=== PATIENT | female | born 1955 | race Caucasian/White ===

== ENCOUNTER 2020-04-01 08:46 | Outpatient (CLI) | payer MEDICARE, SELFPAY ==
[2020-04-01 09:04] LABS: Basophils Absolute Auto 0.04 K/mm3 (0.00-0.10); Basophils Percent Auto 0.7 % (0.0-1.0); Eosinophils Percent Auto 1.9 % (1.0-6.0); Hematocrit 41.3 % (35.0-42.0); Hemoglobin 13.6 g/dL (11.7-13.8); Immature Granulocyte Absolute 0.02 K/mm3 (0.00-0.00); Immature Granulocyte Percent A 0.4 % (0.0-0.0); Lymphocytes Absolute Auto 1.72 K/mm3 (1.10-4.50); Lymphocytes Percent Auto 32.1 % (18.0-42.0); Mean Corpuscular HGB Conc 32.9 g/dL (32.0-36.0); Mean Corpuscular Hemoglobin 29.9 pg (27.0-31.0); Mean Corpuscular Volume 90.8 fL (78.0-102.0); Mean Platelet Volume 8.6 fl (9.2-11.8); Monocytes Absolute Auto 0.29 K/mm3 (0.10-0.90); Monocytes Percent Auto 5.4 % (2.0-11.0); Neutrophils Absolute Auto 3.2 K/mm3 (1.7-7.2); Neutrophils Percent Auto 59.5 % (50.0-70.0); Platelet Count Result 246 K/mm3 (150-420); Red Blood Count 4.55 M/mm3 (4.20-5.40); Red Cell Distribution Width 12.9 % (11.6-14.4); White Blood Count 5.4 K/mm3 (4.8-10.8)
[2020-04-01 09:34] LABS: Alanine Aminotransferase 30 U/L (14-59); Albumin Level 3.9 g/dL (3.4-5.0); Alkaline Phosphatase 82 U/L (46-116); Amylase 39 U/L (25-115); Anion Gap 11.1 mmol/L (7-16); Aspartate Amino Transferase 19 U/L (15-37); Bilirubin,Total 0.5 mg/dL (0.00-1.00); Blood Urea Nitrogen 13 mg/dL (7-18); Calcium 9.5 mg/dL (8.5-10.1); Carbon Dioxide 31 mmol/L (21-32); Chloride 103 mmol/L (98-108); Estimated Glomerular Filt Rate 48; Glucose 185 mg/dL (70-99); Lipase 84 U/L (73-393); Osmolality Calculated 297 mOsm/kg (285-295); Potassium 4.1 mmol/L (3.5-5.1); Sodium 141 mmol/L (136-145); Total Protein 8.1 g/dL (6.4-8.2)
[2020-04-01 09:38] LABS: Add Urine Microscopic? YES; Appearance Urine Clear (Clear); Bilirubin Urine Negative (Negative); Blood Urine Negative (Negative); Color Urine Yellow (Yellow); Glucose Urine UA Negative (Negative); Ketones Urine Negative (Negative); Leukocyte Esterase Ur 1+ (Negative); Nitrate Urine Negative (Negative); Protein Urine Negative (Negative); Urobilinogen Urine 0.2 mg/dL (0.2-1.0)
[2020-04-01 09:44] LABS: RBC Urine 0-2 /hpf (0-2); WBC Urine 0-3 /hpf (0-3)
[2020-04-01 09:45] LABS: Bacteria Urine 2+ /hpf; Squamous Epithelial Cell Urine Moderate /hpf (Few)
== END 2020-04-01 08:47 | disposition home or self-care (01) ==
LOC: CHSLAB 08:53
PROVIDERS: PCP Family Medicine; Visit Provider Family Medicine
DX: R10.811 Right upper quadrant abdominal tenderness (principal); N39.0 Urinary tract infection, site not specified
CPT/HCPCS: 36415; 80053; 81001; 82150; 83690; 85025; 87086; 87088

== ENCOUNTER 2020-04-06 08:07 | Outpatient (CLI) | payer MEDICARE, SELFPAY ==
--- NOTE | ~2020-04-06 | US_ITS ---
EXAMINATION: US right upper quadrant DATE: 04/06/2020 09:04 INDICATION: Right upper quadrant pain TECHNIQUE: Multiple grayscale and Doppler ultrasound images of the abdomen were obtained. COMPARISON: None available FINDINGS: The head and and body of the pancreas are normal. The pancreatic tail is obscured by bowel gas. The liver is normal with normal echogenicity and echotexture. No surface nodularity. Normal hepa topetal flow in the main portal vein. The gallbladder is normal with no abnormal wall thickening, per icholecystic fluid or stones. The normal common bile duct measures 3 mm. No abdominal wall mass is id entified. IMPRESSION: 1. Normal sonographic study of the gallbladder. 2. No abdominal wall mass identified. Reviewed, dictated and finalized at location A.
== END 2020-04-06 08:08 | disposition home or self-care (01) ==
PROVIDERS: PCP Family Medicine; Visit Provider Family Medicine
DX: R10.811 Right upper quadrant abdominal tenderness (principal)
CPT/HCPCS: 76705

== ENCOUNTER 2020-06-21 07:41 | Outpatient (CLI) | payer MEDICARE, SELFPAY ==
[2020-06-21 07:59] LABS: Basophils Absolute Auto 0.03 K/mm3 (0.00-0.10); Basophils Percent Auto 0.5 % (0.0-1.0); Eosinophils Absolute Auto 0.14 K/mm3 (0.02-0.50); Eosinophils Percent Auto 2.2 % (1.0-6.0); Hematocrit 41.2 % (35.0-42.0); Hemoglobin 13.4 g/dL (11.7-13.8); Immature Granulocyte Absolute 0.03 K/mm3 (0.00-0.00); Immature Granulocyte Percent A 0.5 % (0.0-0.0); Lymphocytes Absolute Auto 2.47 K/mm3 (1.10-4.50); Lymphocytes Percent Auto 38.2 % (18.0-42.0); Mean Corpuscular HGB Conc 32.5 g/dL (32.0-36.0); Mean Corpuscular Hemoglobin 29.5 pg (27.0-31.0); Mean Corpuscular Volume 90.7 fL (78.0-102.0); Mean Platelet Volume 8.6 fl (9.2-11.8); Monocytes Absolute Auto 0.42 K/mm3 (0.10-0.90); Monocytes Percent Auto 6.5 % (2.0-11.0); Neutrophils Absolute Auto 3.4 K/mm3 (1.7-7.2); Neutrophils Percent Auto 52.1 % (50.0-70.0); Platelet Count Result 242 K/mm3 (150-420); Red Blood Count 4.54 M/mm3 (4.20-5.40); Red Cell Distribution Width 12.9 % (11.6-14.4); White Blood Count 6.5 K/mm3 (4.8-10.8)
[2020-06-21 08:25] LABS: Hemoglobin A1C 6.9 % (<5.7)
[2020-06-21 09:16] LABS: Alanine Aminotransferase 20 U/L (14-59); Albumin Level 3.9 g/dL (3.4-5.0); Alkaline Phosphatase 84 U/L (46-116); Anion Gap 9 mmol/L (8-16); Aspartate Amino Transferase 18 U/L (15-37); Bilirubin,Total 0.4 mg/dL (0.00-1.00); Blood Urea Nitrogen 20 mg/dL (7-18); Calcium 9.5 mg/dL (8.5-10.1); Carbon Dioxide 28 mmol/L (21-32); Chloride 105 mmol/L (98-108); Cholesterol 261 mg/dL (0-200); Creatine Kinase 55 U/L (26-192); Estimated Glomerular Filt Rate 38; Glucose 101 mg/dL (70-99); HDL Direct 41 mg/dL (40-60); LDL Cholesterol Calculated 153 mg/dL (<130); Osmolality Calculated 296 mOsm/kg (285-295); Potassium 4.3 mmol/L (3.5-5.1); Sodium 142 mmol/L (136-145); Thyroid Stimulating Hormone 4.52 uIU/mL (0.36-3.74); Total Protein 7.6 g/dL (6.4-8.2); Triglycerides 336 mg/dL (0-150)
== END 2020-06-21 07:42 | disposition home or self-care (01) ==
LOC: CHSLAB 07:43
PROVIDERS: PCP Family Medicine; Visit Provider Family Medicine
DX: R94.6 Abnormal results of thyroid function studies (principal); E11.21 Type 2 diabetes mellitus with diabetic nephropathy; E78.2 Mixed hyperlipidemia
CPT/HCPCS: 36415; 80053; 80061; 82550; 83036; 84439; 84443; 85025

== ENCOUNTER 2020-09-30 07:57 | Outpatient (CLI) | payer MEDICARE, SELFPAY ==
[2020-09-30 08:10] LABS: Basophils Absolute Auto 0.02 K/mm3 (0.00-0.10); Basophils Percent Auto 0.3 % (0.0-1.0); Eosinophils Absolute Auto 0.14 K/mm3 (0.02-0.50); Eosinophils Percent Auto 2.1 % (1.0-6.0); Hematocrit 41.6 % (35.0-42.0); Hemoglobin 13.4 g/dL (11.7-13.8); Immature Granulocyte Absolute 0.01 K/mm3 (0.00-0.00); Immature Granulocyte Percent A 0.1 % (0.0-0.0); Mean Corpuscular HGB Conc 32.2 g/dL (32.0-36.0); Mean Corpuscular Hemoglobin 28.8 pg (27.0-31.0); Mean Corpuscular Volume 89.5 fL (78.0-102.0); Mean Platelet Volume 8.6 fl (9.2-11.8); Monocytes Absolute Auto 0.52 K/mm3 (0.10-0.90); Monocytes Percent Auto 7.7 % (2.0-11.0); Neutrophils Absolute Auto 3.6 K/mm3 (1.7-7.2); Neutrophils Percent Auto 52.8 % (50.0-70.0); Platelet Count Result 243 K/mm3 (150-420); Red Blood Count 4.65 M/mm3 (4.20-5.40); Red Cell Distribution Width 13.6 % (11.6-14.4); White Blood Count 6.8 K/mm3 (4.8-10.8)
[2020-09-30 08:24] LABS: Hemoglobin A1C 6.5 % (<5.7)
[2020-09-30 10:01] LABS: Anion Gap 7 mmol/L (8-16); Blood Urea Nitrogen 19 mg/dL (7-18); Calcium 9.6 mg/dL (8.5-10.1); Carbon Dioxide 29 mmol/L (21-32); Chloride 102 mmol/L (98-108); Estimated Glomerular Filt Rate 47; Free T4 Free Thyroxine 0.99 ng/dL (0.76-1.46); Glucose 197 mg/dL (70-99); Osmolality Calculated 293 mOsm/kg (285-295); Potassium 4.4 mmol/L (3.5-5.1); Sodium 138 mmol/L (136-145); Thyroid Stimulating Hormone 4.36 uIU/mL (0.36-3.74)
[2020-09-30 12:16] LABS: Add Urine Microscopic? YES; Appearance Urine Clear (Clear); Bilirubin Urine Negative (Negative); Blood Urine Negative (Negative); Color Urine Yellow (Yellow); Glucose Urine UA Negative (Negative); Ketones Urine Trace (Negative); Leukocyte Esterase Ur 1+ (Negative); Nitrate Urine Negative (Negative); Protein Urine Negative (Negative); Specific Grav Ur 1.025 (1.010-1.020); Urobilinogen Urine 0.2 mg/dL (0.2-1.0); pH Urine 5.5 (5.0-8.0)
[2020-09-30 12:22] LABS: Bacteria Urine Trace /hpf; RBC Urine 0-2 /hpf (0-2); Squamous Epithelial Cell Urine Few /hpf (Few); WBC Urine 0-3 /hpf (0-3)
[2020-09-30 12:37] LABS: Creatinine Urine 120.09 mg/dL (40-278); MALB Creatinine Ratio 10.8 mg/g (0-30); Microalbumin Urine Random < 13.0 mg/L
== END 2020-09-30 07:58 | disposition home or self-care (01) ==
LOC: CHSLAB 07:59
PROVIDERS: PCP Family Medicine; Visit Provider Family Medicine
DX: E11.9 Type 2 diabetes mellitus without complications (principal); I10 Essential (primary) hypertension; R94.6 Abnormal results of thyroid function studies; N39.0 Urinary tract infection, site not specified
CPT/HCPCS: 36415; 80048; 81001; 82043; 83036; 84439; 84443; 85025; 87086; 87088

== ENCOUNTER 2021-01-03 08:53 | Outpatient (CLI) | payer MEDICARE, SELFPAY ==
[2021-01-03 09:07] LABS: Basophils Absolute Auto 0.03 K/mm3 (0.00-0.10); Basophils Percent Auto 0.5 % (0.0-1.0); Eosinophils Percent Auto 3.2 % (1.0-6.0); Hematocrit 39.9 % (35.0-42.0); Immature Granulocyte Absolute 0.02 K/mm3 (0.00-0.00); Immature Granulocyte Percent A 0.3 % (0.0-0.0); Lymphocytes Absolute Auto 2.48 K/mm3 (1.10-4.50); Lymphocytes Percent Auto 39.6 % (18.0-42.0); Mean Corpuscular HGB Conc 32.6 g/dL (32.0-36.0); Mean Corpuscular Hemoglobin 28.8 pg (27.0-31.0); Mean Corpuscular Volume 88.3 fL (78.0-102.0); Mean Platelet Volume 8.6 fl (9.2-11.8); Monocytes Absolute Auto 0.38 K/mm3 (0.10-0.90); Monocytes Percent Auto 6.1 % (2.0-11.0); Neutrophils Absolute Auto 3.2 K/mm3 (1.7-7.2); Neutrophils Percent Auto 50.3 % (50.0-70.0); Platelet Count Result 246 K/mm3 (150-420); Red Blood Count 4.52 M/mm3 (4.20-5.40); Red Cell Distribution Width 12.7 % (11.6-14.4); White Blood Count 6.3 K/mm3 (4.8-10.8)
[2021-01-03 09:32] LABS: Hemoglobin A1C 6.4 % (<5.7)
[2021-01-03 09:59] LABS: Alanine Aminotransferase 32 U/L (14-59); Albumin Level 3.7 g/dL (3.4-5.0); Alkaline Phosphatase 88 U/L (46-116); Anion Gap 8 mmol/L (8-16); Aspartate Amino Transferase 18 U/L (15-37); Bilirubin,Total 0.5 mg/dL (0.00-1.00); Blood Urea Nitrogen 13 mg/dL (7-18); Calcium 9.5 mg/dL (8.5-10.1); Carbon Dioxide 32 mmol/L (21-32); Chloride 104 mmol/L (98-108); Estimated Glomerular Filt Rate 48; Free T4 Free Thyroxine 0.88 ng/dL (0.76-1.46); Glucose 141 mg/dL (70-99); Osmolality Calculated 300 mOsm/kg (285-295); Potassium 4.2 mmol/L (3.5-5.1); Sodium 144 mmol/L (136-145); Thyroid Stimulating Hormone 4.68 uIU/mL (0.36-3.74); Total Protein 7.4 g/dL (6.4-8.2)
== END 2021-01-03 08:54 | disposition home or self-care (01) ==
PROVIDERS: PCP Family Medicine; Visit Provider Family Medicine
DX: E11.21 Type 2 diabetes mellitus with diabetic nephropathy (principal); R94.6 Abnormal results of thyroid function studies
CPT/HCPCS: 36415; 80053; 83036; 84439; 84443; 85025

== ENCOUNTER 2021-01-06 12:29 | Outpatient (CLI) | payer MEDICARE, SELFPAY ==
--- NOTE | ~2021-01-06 | XR_ITS ---
XR shoulder RT min 2V 01/06/2021 15:37 INDICATION: Right shoulder pain for one year PROCEDURE: 4 views right shoulder COMPARISON: No prior studies for comparison. FINDINGS: Fracture, dislocation or subluxation is not identified. Mild osteoarthritis of the glenohum eral joint. The soft tissues appear within normal limits. No foreign bodies are identified. IMPRESSION: 1: Mild osteoarthritis. Reviewed, dictated and finalized at location B. IMPRESSION: 1: Mild osteoarthritis.
--- NOTE | ~2021-01-06 | MM_ITS ---
EXAMINATION: MM screening [facility] BI w neri HISTORY: Screening mammogram TECHNIQUE: Craniocaudal and mediolateral oblique 3-D tomosynthesis images were obtained and synthetic 2-D images were generated. CAD analysis was submitted and interpreted. COMPARISON: 06/23/2019, 08/24/2015 BREAST PARENCHYMAL COMPOSITION: The breasts are heterogeneously dense, which may obscure small masses . FINDINGS: There is no evidence of suspicious mass, calcification, or architectural distortion to sugg est malignancy in either breast. There has been no suspicious interval change. IMPRESSION: 1. No mammographic evidence of malignancy. 2. Recommend routine screening mammography in one year. BI-RADS Category 1: Negative Reviewed, dictated and finalized at location A.
== END 2021-01-06 12:30 | disposition home or self-care (01) ==
PROVIDERS: PCP Family Medicine; Visit Provider Family Medicine
DX: M25.511 Pain in right shoulder (principal); Z12.31 Encounter for screening mammogram for malignant neoplasm of breast
CPT/HCPCS: 73030; 77063; 77067

== ENCOUNTER 2021-01-11 16:46 | Outpatient (RCR) | payer MEDICARE, OTHER, SELFPAY ==
--- NOTE | 2021-01-11 17:55 | PTOPEVAL ---
Thank you for referring Belinda Tavarez to [facility].? The patient is scheduled to be seen for therapy? ____x/week for ___ weeks. Please review, sign, date and return this plan of care TAISHA. I agree with and certify that the following plan of care is medically necessary. Referring Physician Date Admitting Provider: Attending Provider: James Painter MD Referring Provider: *PT Outpatient Evaluation Start: 01/11/21 16:51 Freq: Status: Active Protocol: Document 01/11/21 17:00 Kaila (Rec: 01/11/21 17:42 [facility] [id number]) Therapy Assessment Status Assessment Status Assessment Status Evaluation Evaluation Information Problem Diagnosis R shoulder pain, adhesive capsulitis Onset 01/09/21 Additional Evaluation Detail quick dash = 40% functional deficits Subjective Information patient reports she has been Query Text:As Reported By Patient/ having pain in the R shoulder Family for about 1 year. she reports no injury to the R shoulder. 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 she reports she has pain in the mid arm at times. she reports difficulty sleeping. she reports she has had an xray of the R shoulder. she reports no injection to the R shoulder as of this date. Prior Level of Function Comments Additional Prior Level of Function prior to the pain beginning, Comments patient reports she was moving her arm better and with less pain. she reports she was able to easily reach in all directions including behind her back prior to the last 6 months. she reports she has increased pain reaching out to her side and behind her back. Pain Assessment Timing of Pain Assessment Timing of Pain Assessment Assessment Pain Scale Pain Scale Used Numeric (1 - 10) Self Report Pain Assessment Right Shoulder(s) Reported Pain Level 0 Pain Frequency Chronic,Intermittent Lowest Pain Intensity 0 Greatest Pain Intensity 8 Pain Score Pain Score 0: Self Report Interventions Used Interventions Used By Cli
== END 2021-02-24 14:17 | disposition home or self-care (01) ==
LOC: CHSPT 16:46
PROVIDERS: PCP Family Medicine; Visit Provider Family Medicine
DX: M25.511 Pain in right shoulder (principal); R42 Dizziness and giddiness
CPT/HCPCS: 97014; 97110; 97140; 97161; 97530; G0283

== ENCOUNTER 2021-04-11 06:56 | Outpatient (CLI) | payer MEDICARE, SELFPAY ==
[2021-04-11 07:07] LABS: Basophils Absolute Auto 0.05 K/mm3 (0.00-0.10); Basophils Percent Auto 0.7 % (0.0-1.0); Eosinophils Absolute Auto 0.16 K/mm3 (0.02-0.50); Eosinophils Percent Auto 2.3 % (1.0-6.0); Hematocrit 41.2 % (35.0-42.0); Hemoglobin 13.6 g/dL (11.7-13.8); Immature Granulocyte Absolute 0.02 K/mm3 (0.00-0.00); Immature Granulocyte Percent A 0.3 % (0.0-0.0); Lymphocytes Absolute Auto 2.28 K/mm3 (1.10-4.50); Lymphocytes Percent Auto 33.4 % (18.0-42.0); Mean Corpuscular Hemoglobin 29.4 pg (27.0-31.0); Mean Corpuscular Volume 89.2 fL (78.0-102.0); Mean Platelet Volume 8.5 fl (9.2-11.8); Monocytes Absolute Auto 0.44 K/mm3 (0.10-0.90); Monocytes Percent Auto 6.5 % (2.0-11.0); Neutrophils Absolute Auto 3.9 K/mm3 (1.7-7.2); Neutrophils Percent Auto 56.8 % (50.0-70.0); Platelet Count Result 243 K/mm3 (150-420); Red Blood Count 4.62 M/mm3 (4.20-5.40); Red Cell Distribution Width 13.2 % (11.6-14.4); White Blood Count 6.8 K/mm3 (4.8-10.8)
[2021-04-11 07:19] LABS: Hemoglobin A1C 7.1 % (<5.7)
[2021-04-11 07:23] LABS: Add Urine Microscopic? YES; Appearance Urine Clear (Clear); Bilirubin Urine Negative (Negative); Blood Urine Negative (Negative); Color Urine Light Yellow (Yellow); Glucose Urine UA Negative (Negative); Ketones Urine Negative (Negative); Leukocyte Esterase Ur 2+ (Negative); Nitrate Urine Negative (Negative); Protein Urine Negative (Negative); Specific Grav Ur 1.015 (1.010-1.020); Urobilinogen Urine 0.2 mg/dL (0.2-1.0)
[2021-04-11 07:28] LABS: Bacteria Urine Trace /hpf; RBC Urine None seen /hpf (0-2); Squamous Epithelial Cell Urine Few /hpf (Few)
[2021-04-11 08:13] LABS: Anion Gap 9 mmol/L (8-16); Blood Urea Nitrogen 20 mg/dL (7-18); Calcium 9.3 mg/dL (8.5-10.1); Carbon Dioxide 31 mmol/L (21-32); Chloride 104 mmol/L (98-108); Estimated Glomerular Filt Rate 55; Glucose 103 mg/dL (70-99); Osmolality Calculated 300 mOsm/kg (285-295); Potassium 4.2 mmol/L (3.5-5.1); Sodium 144 mmol/L (136-145); Thyroid Stimulating Hormone 5.85 uIU/mL (0.36-3.74)
[2021-04-13 09:23] LABS: Free T3 3.16 pg/mL (2.18-3.98); Free T4 Free Thyroxine 1.03 ng/dL (0.76-1.46)
== END 2021-04-11 06:57 | disposition home or self-care (01) ==
LOC: CHSLAB 06:58
PROVIDERS: PCP Family Medicine; Visit Provider Family Medicine
DX: E11.9 Type 2 diabetes mellitus without complications (principal); R94.6 Abnormal results of thyroid function studies
CPT/HCPCS: 36415; 80048; 81001; 83036; 84436; 84439; 84443; 84480; 84481; 85025

== ENCOUNTER 2021-07-22 15:48 | Outpatient (CLI) | payer MEDICARE, SELFPAY ==
[2021-07-22 16:57] LABS: Free T4 Free Thyroxine 0.98 ng/dL (0.76-1.46); Thyroid Stimulating Hormone 2.85 uIU/mL (0.36-3.74)
[2021-07-26 07:01] LABS: Total Triiodothyronine (T3) 114 ng/dL (76-181)
== END 2021-07-22 15:49 | disposition home or self-care (01) ==
PROVIDERS: PCP Family Medicine; Visit Provider Family Medicine
DX: R94.6 Abnormal results of thyroid function studies (principal)
CPT/HCPCS: 36415; 84439; 84443; 84480

== ENCOUNTER 2021-07-27 08:37 | Outpatient (CLI) | payer MEDICARE, SELFPAY ==
[2021-07-27 08:47] LABS: Basophils Absolute Auto 0.04 K/mm3 (0.00-0.10); Basophils Percent Auto 0.7 % (0.0-1.0); Eosinophils Absolute Auto 0.17 K/mm3 (0.02-0.50); Hematocrit 39.4 % (35.0-42.0); Hemoglobin 12.9 g/dL (11.7-13.8); Immature Granulocyte Absolute 0.02 K/mm3 (0.00-0.00); Immature Granulocyte Percent A 0.4 % (0.0-0.0); Lymphocytes Absolute Auto 2.22 K/mm3 (1.10-4.50); Lymphocytes Percent Auto 38.9 % (18.0-42.0); Mean Corpuscular HGB Conc 32.7 g/dL (32.0-36.0); Mean Corpuscular Volume 88.5 fL (78.0-102.0); Mean Platelet Volume 8.2 fl (9.2-11.8); Monocytes Absolute Auto 0.46 K/mm3 (0.10-0.90); Monocytes Percent Auto 8.1 % (2.0-11.0); Neutrophils Absolute Auto 2.8 K/mm3 (1.7-7.2); Neutrophils Percent Auto 48.9 % (50.0-70.0); Platelet Count Result 233 K/mm3 (150-420); Red Blood Count 4.45 M/mm3 (4.20-5.40); Red Cell Distribution Width 12.7 % (11.6-14.4); White Blood Count 5.7 K/mm3 (4.8-10.8)
[2021-07-27 09:03] LABS: Hemoglobin A1C 6.8 % (<5.7)
[2021-07-27 09:45] LABS: Alanine Aminotransferase 34 U/L (14-59); Albumin Level 3.6 g/dL (3.4-5.0); Alkaline Phosphatase 77 U/L (46-116); Anion Gap 7 mmol/L (8-16); Aspartate Amino Transferase 18 U/L (15-37); Bilirubin,Total 0.5 mg/dL (0.00-1.00); Blood Urea Nitrogen 18 mg/dL (7-18); Calcium 9.2 mg/dL (8.5-10.1); Carbon Dioxide 32 mmol/L (21-32); Chloride 102 mmol/L (98-108); Cholesterol 228 mg/dL (0-200); Estimated Glomerular Filt Rate 51; Glucose 88 mg/dL (70-99); HDL Direct 44 mg/dL (40-60); LDL Cholesterol Calculated 148 mg/dL (<130); Osmolality Calculated 292 mOsm/kg (285-295); Potassium 4.1 mmol/L (3.5-5.1); Sodium 141 mmol/L (136-145); Total Protein 7.1 g/dL (6.4-8.2); Triglycerides 178 mg/dL (0-150)
== END 2021-07-27 08:38 | disposition home or self-care (01) ==
LOC: CHSLAB 08:38
PROVIDERS: PCP Family Medicine; Visit Provider Family Medicine
DX: E78.2 Mixed hyperlipidemia (principal); E11.21 Type 2 diabetes mellitus with diabetic nephropathy
CPT/HCPCS: 36415; 80053; 80061; 83036; 85025

== ENCOUNTER 2021-11-03 08:29 | Outpatient (CLI) | payer MEDICARE, SELFPAY ==
[2021-11-03 08:46] LABS: Basophils Absolute Auto 0.05 K/mm3 (0.00-0.10); Basophils Percent Auto 0.9 % (0.0-1.0); Eosinophils Absolute Auto 0.13 K/mm3 (0.02-0.50); Eosinophils Percent Auto 2.4 % (1.0-6.0); Hematocrit 40.8 % (35.0-42.0); Hemoglobin 13.3 g/dL (11.7-13.8); Immature Granulocyte Absolute 0.01 K/mm3 (0.00-0.00); Immature Granulocyte Percent A 0.2 % (0.0-0.0); Lymphocytes Absolute Auto 2.47 K/mm3 (1.10-4.50); Lymphocytes Percent Auto 44.9 % (18.0-42.0); Mean Corpuscular HGB Conc 32.6 g/dL (32.0-36.0); Mean Corpuscular Hemoglobin 29.4 pg (27.0-31.0); Mean Corpuscular Volume 90.1 fL (78.0-102.0); Mean Platelet Volume 8.5 fl (9.2-11.8); Monocytes Absolute Auto 0.39 K/mm3 (0.10-0.90); Monocytes Percent Auto 7.1 % (2.0-11.0); Neutrophils Absolute Auto 2.5 K/mm3 (1.7-7.2); Neutrophils Percent Auto 44.5 % (50.0-70.0); Platelet Count Result 229 K/mm3 (150-420); Red Blood Count 4.53 M/mm3 (4.20-5.40); White Blood Count 5.5 K/mm3 (4.8-10.8)
[2021-11-03 09:23] LABS: Anion Gap 9 mmol/L (8-16); Blood Urea Nitrogen 20 mg/dL (7-18); Calcium 9.4 mg/dL (8.5-10.1); Carbon Dioxide 31 mmol/L (21-32); Chloride 102 mmol/L (98-108); Estimated Glomerular Filt Rate 46; Glucose 155 mg/dL (70-99); Osmolality Calculated 299 mOsm/kg (285-295); Potassium 3.9 mmol/L (3.5-5.1); Sodium 142 mmol/L (136-145)
[2021-11-03 09:26] LABS: Hemoglobin A1C 6.6 % (<5.7)
== END 2021-11-03 08:30 | disposition home or self-care (01) ==
LOC: CHSLAB 08:31
PROVIDERS: PCP Family Medicine; Visit Provider Family Medicine
DX: E11.21 Type 2 diabetes mellitus with diabetic nephropathy (principal)
CPT/HCPCS: 36415; 80048; 83036; 85025

== ENCOUNTER 2022-02-27 03:28 | Emergency (ER) | payer MEDICARE, SELFPAY ==
[2022-02-27] VITALS (8 sets, daily range): BP systolic 135–159; BP diastolic 68–87; PULSE 65–100; RESP 16–20; TEMP 36.2–36.7; O2SAT 85–100
--- NOTE | ~2022-02-27 | US_ITS ---
EXAMINATION: US abdomen limited DATE: 02/27/2022 07:52 INDICATION: Right upper quadrant abdominal pain. Cholelithiasis. TECHNIQUE: Multiple grayscale and Doppler ultrasound images of the abdomen were obtained. COMPARISON: CT dated 02/27/2022 FINDINGS: The pancreatic head and body are normal in appearance. The pancreatic tail is not visualized. Liver has normal echogenicity and contour, with a smooth surface. No liver lesion identified. No intrahepat ic biliary duct dilation suspected. Portal venous flow was seen in the hepatopetal, normal direction and has normal Doppler waveform. Shadowing gallstones within the otherwise normal-appearing gallbladd er. Sonographic Reynolds sign was reported as negative by the insulation professional.Common bile duct measures 5 m m diameter which is normal. Visualized portion of the proximal inferior vena cava and visualized port ion of the right kidney are normal. IMPRESSION: 1. Cholelithiasis. Reviewed, dictated and finalized at location A. IMPRESSION: 1. Cholelithiasis.
--- NOTE | ~2022-02-27 | CT_ITS ---
EXAMINATION: CT abdomen pelvis w con DATE: 02/27/2022 04:43 INDICATION: Right upper quadrant pain. Cholelithiasis. TECHNIQUE: Computed tomography (CT) of the abdomen and pelvis was performed with 100 cc Omnipaque 300 intravenous contrast. The dose-length product was 746.19 mGy-cm. Automated exposure control and iter ative reconstruction technique were employed. COMPARISON: Ultrasound dated 04/06/2020. FINDINGS: Lung bases are unremarkable. Heart size normal. Mild thickening of the distal esophagus. No significant pleural or pericardial effusion. Gallstones. Mild gallbladder distention. The spleen, pancreas, adrenal glands are unremarkable. Small subcentimeter hypodensities of the kidneys, most likely benign cysts. No hydronephrosis. Small fat-c ontaining umbilical hernia. Normal appendix. Nonobstructive bowel gas pattern. No significant vascula r abnormality. No lymphadenopathy. Mild bladder wall thickening with subtle perivesical infiltration. Consider cystitis in the appropriate clinical setting. No abnormal pelvic masses or fluid collection s. No free air. 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 IMPRESSION: 1. Cholelithiasis with mild gallbladder distention. If there is concern for cholecystitis, correlatio n with nuclear hepatobiliary scan recommended. 2: Mild bladder wall thickening with subtle perivesical fatty infiltration. Consider cystitis in the appropriate clinical setting. Reviewed, dictated and finalized at location A. IMPRESSION: 1. Cholelithiasis with mild gallbladder distention. If there is concern for cho lecystitis, correlation with nuclear hepatobiliary scan recommended. 2: Mild bladder wall thickening with subtle perivesical fatty infiltration. Co nsider cystitis in the appropriate clinical setting.
--- NOTE | 2022-02-27 03:38 | ED.ABDPAIN ---
HPI - Abdominal Pain General Chief Complaint: Abdominal Pain <Karen Nathan MD - Last Filed: 02/27/22 07:08> Stated Complaint: Adominal pain <Karen Nathan MD - Last Filed: 02/27/22 07:08> Time Seen by Provider: 02/27/22 03:31 <Karen Nathan MD - Last Filed: 02/27/22 07:08> History of Present Illness HPI narrative: 67-year-old female patient is brought to the ER by her with complaints of upper mid and right abdominal pain that started gradually around 10:00 p.m. last night. Patient states that she had her dinner of pulled pork and went to bed fine and woke up with pain around 10:00 p.m.. The pain has been more progressive and excruciating just prior to arrival here. The pain radiates around to the right side to the back. There has been nausea and vomiting associated with the pain. . The patient states that she threw up all the food that she had eaten last night. No diarrhea is reported. No urinary symptoms are reported. No fever or chills is reported at this time. Patient denies any chest discomfort and or shortness of breath. Patient has a history of insulin-dependent diabetes mellitus . Pain level is described 07/23. <Karen Nathan MD - Last Filed: 02/27/22 07:08> Related Data Hx Last Menstrual Period: Not applicable <Karen Nathan MD - Last Filed: 02/27/22 07:08> Home Medications: Home Medications Medication Instructions Recorded Confirmed ezetimibe 10 mg PO DAILY 02/27/22 02/27/22 insulin glargine [Lantus Solostar 40 unit SUBCUT HS 02/27/22 02/27/22 U-100 Insulin] insulin lispro [Humalog KwikPen 14 sliding scale dose SUBCUT 02/27/22 02/27/22 Insulin] TIDWMEAL lisinopril 5 mg PO DAILY 02/27/22 02/27/22 <Karen Nathan MD - Last Filed: 02/27/22 07:08> Allergies/Adverse Reactions: Allergies Allergy/AdvReac Type Severity Reaction Status Date / Time atorvastatin Allergy Unknown Verified 04/01/20 13:51 morphine Allergy Unknown Verified 04/01/20 13:51 pravastatin Allergy Unknown Verified 04/01/20 13:51 rosuvastatin Allergy Unknown Verified 04/01/20 13:51 simvastatin Allergy Unknown Verified 04/01/20 13:51 <Karen Nathan MD - Last Filed: 02/27/22 07:08> Review of Systems Review of Systems: All systems reviewed & are unremarkable except as noted in HPI and below <Karen Nathan MD - Last Filed: 02/27/22 07:08> Constitutional: Constitutional: Reports no additional constitutional complaints, Denies chills and Denies fever(s) <Karen Nathan MD - Last Filed: 02/27/22 07:08> Eyes: Eyes: Reports no additional eye complaints <Karen Nathan MD - Last Filed: 02/27/22 07:08> ENT: Reports system reviewed and no additional complaints, except as documented <Karen Nathan MD - Last Filed: 02/27/22 07:08> Cardiovascular: Cardiovascular: Reports no additional cardiovascular complaints <Karen Nathan MD - Last Filed: 02/27/22 07:08> Respiratory: Respiratory: Reports no additional respiratory complaints <Karen Nathan MD - Last Filed: 02/27/22 07:08> Gastrointestinal: Gastrointestinal: Reports abdominal pain, Denies bloating, Denies constipation, Denies heartburn, Denies diarrhea, Reports nausea and Reports vomiting <Karen Nathan MD - Last Filed: 02/27/22 07:08> Genitourinary: Genitourinary: Reports no additional female genitourinary complaints <Karen Nathan MD - Last Filed: 02/27/22 07:08> Musculoskeletal: Musculoskeletal: Reports no additional musculoskeletal complaints <Karen Nathan MD - Last Filed: 02/27/22 07:08> Integumentary/Breasts: Skin/Breast: Reports system reviewed and no additional complaints, except as docu <Karen Nathan MD - Last Filed: 02/27/22 07:08> Neurologic: Reports system reviewed and no additional complaints, except as documented <Karen Nathan MD - Last Filed: 02/27/22 07:08> Psychiatric: Psychiatric: Reports no additional psychiatric complaints <Karen Nathan MD - Last Filed: 02/27/22 07:08> Endocrine: Endocrine: Reports no add
--- NOTE | 2022-02-27 03:39 | ECG_ITS ---
Measurements Intervals [place] Rate: 86 P: 40 ID: 153 QRS: 6 QRSD: 90 T: 61 QT: 382 QTc: 457 Interpretive Statements SINUS RHYTHM LOW QRS VOLTAGE IN PRECORDIAL LEADS BASELINE ARTIFACT- I, II, III, AVR, AVL, AVF, V1-V2, V5 BORDERLINE ECG Electronically Signed On 02-27-2022 6:44:18 CDT by Morris Sheriff D.O.
[2022-02-27] MEDS: HYDROmorphone HCL INJ (*CRX) 2 MG/ML VIAL 1 MG IV PUSH ×2 (03:46→06:34)
[2022-02-27] MEDS: ONDANSETRON INJ 4 MG/2 ML VIAL IV PUSH ×2 (03:46→04:51)
[2022-02-27] MEDS: SODIUM CHLORIDE 0.9% IV 1,000 ML 999 ML IV CONT (03:52)
[2022-02-27 03:59] LABS: Glucose Point of Care 174 mg/dl (65-105)
[2022-02-27 04:06] LABS: Basophils Absolute Auto 0.03 K/mm3 (0.00-0.10); Basophils Percent Auto 0.5 % (0.0-1.0); Eosinophils Absolute Auto 0.15 K/mm3 (0.02-0.50); Eosinophils Percent Auto 2.3 % (1.0-6.0); Hematocrit 38.5 % (35.0-42.0); Hemoglobin 12.9 g/dL (11.7-13.8); Immature Granulocyte Absolute 0.03 K/mm3 (0.00-0.00); Immature Granulocyte Percent A 0.5 % (0.0-0.0); Lymphocytes Percent Auto 36.9 % (18.0-42.0); Mean Corpuscular HGB Conc 33.5 g/dL (32.0-36.0); Mean Corpuscular Hemoglobin 30.2 pg (27.0-31.0); Mean Corpuscular Volume 90.2 fL (78.0-102.0); Mean Platelet Volume 8.8 fl (9.2-11.8); Monocytes Absolute Auto 0.41 K/mm3 (0.10-0.90); Monocytes Percent Auto 6.3 % (2.0-11.0); Neutrophils Absolute Auto 3.5 K/mm3 (1.7-7.2); Neutrophils Percent Auto 53.5 % (50.0-70.0); Platelet Count Result 235 K/mm3 (150-420); Red Blood Count 4.27 M/mm3 (4.20-5.40); Red Cell Distribution Width 12.5 % (11.6-14.4); White Blood Count 6.5 K/mm3 (4.8-10.8)
[2022-02-27 04:23] LABS: Alanine Aminotransferase 19 U/L (14-59); Albumin Level 3.4 g/dL (3.4-5.0); Alkaline Phosphatase 80 U/L (46-116); Anion Gap 8 mmol/L (8-16); Aspartate Amino Transferase 11 U/L (15-37); Bilirubin Direct 0.1 mg/dL (0-0.2); Bilirubin,Total 0.3 mg/dL (0.00-1.00); Blood Urea Nitrogen 18 mg/dL (7-18); Carbon Dioxide 28 mmol/L (21-32); Chloride 106 mmol/L (98-108); Estimated Glomerular Filt Rate 41; Glucose 191 mg/dL (70-99); Lipase 93 U/L (73-393); Magnesium 1.8 mg/dL (1.8-2.4); Osmolality Calculated 300 mOsm/kg (285-295); Potassium 3.4 mmol/L (3.5-5.1); Sodium 142 mmol/L (136-145); Total Protein 7.2 g/dL (6.4-8.2); Troponin I 5.3 ng/L (0.00-60.4)
[2022-02-27 04:27] LABS: Appearance Urine Clear (Clear); Bilirubin Urine Negative (Negative); Blood Urine Negative (Negative); Color Urine Dark Yellow (Yellow); Glucose Urine UA Negative (Negative); Ketones Urine Negative (Negative); Leukocyte Esterase Ur Negative LEU/UL (Negative); Nitrate Urine Negative (Negative); Protein Urine Negative (Negative); Urobilinogen Urine 0.2 mg/dL (0.2-1.0); pH Urine 7.5 (5.0-8.0)
[2022-02-27 04:28] LABS: Add Urine Microscopic? NO
--- NOTE | 2022-02-27 05:40 | PC.NURSE ---
Pt having increasing abd pain again c nausea, Radiology called statrad since it has been over 1 hr. and still no report. Stat Rad stated another 30 min. before p[address]. abd. CT could be read. Pt given warm blanket for comfort and explained to pt and family about wait times for CT report
[2022-02-27] MEDS: METOCLOPRAMIDE HCL INJ 10 MG/2 ML VIAL IV PUSH (06:38)
[2022-02-27] MEDS: KCL 40 MEQ/0.9% SOD CHL 1,000 ML 150 ML IV CONT (06:48)
--- NOTE | 2022-02-27 06:53 | PC.NURSE ---
Dr Gibbs discussed POC and need for U/S of GB c pt and spouse. Order obtained for U/S, pt resting at this time p being given IVP meds for pain and intractable nausea. VSS at this time c 3L NC in place.
--- NOTE | 2022-02-27 07:03 | PC.NURSE ---
Report given to Sid Yo
[2022-02-27 09:16] LABS: Glucose Point of Care 188 mg/dl (65-105)
== END 2022-02-27 09:36 | disposition short-term general hospital (02) ==
PROVIDERS: Emergency Medicine; Emergency Provider Emergency Medicine; PCP Family Medicine
DX: K80.20 Calculus of gallbladder without cholecystitis without obstruction (principal); E11.9 Type 2 diabetes mellitus without complications; I10 Essential (primary) hypertension
CPT/HCPCS: 36415; 51701; 74177; 76705; 80053; 81003; 82248; 82948; 83690; 83735; 84484; 85025; 93005; 96361; 96365; 96366; 96375; 96376; 99285; J1170; J2405; J2765; J7030; Q9967

== ENCOUNTER 2022-02-27 10:34 | Observation (INO) | payer MEDICARE, SELFPAY ==
[2022-02-27] VITALS (17 sets, daily range): BP systolic 122–158; BP diastolic 58–80; PULSE 64–109; RESP 10–114; TEMP 36.4–36.9; O2SAT 90–100
[2022-02-27 11:17] LABS: Glucose Point of Care 257 mg/dl (65-105)
--- NOTE | 2022-02-27 11:54 | PM.IMHP ---
H&P: HPI History of Present Illness Date/Time: 02/27/22 11:54 Chief Complaint: RUQ abdominal pain, vomiting Narrative: This is a 67 yo female who presented to [place] ER early this morning with complaints of abdominal pain, nausea, and vomiting. She had BBQ pulled pork and potatoes last night for dinner around 4:00 pm. Around 10:00 pm she began having some RUQ abdominal pain and nausea with vomiting. She had multiple episodes of vomiting. She reports her pain is in the RUQ and radiates around laterally to her back. She woke her up from sleep due to the pain and he reports she was constantly dry heaving and complaining that the pain was intensifying. He then brought her into the ER for further evaluation. CT scan of the abdomen and pelvis showed cholelithiasis with mild gallbladder distention, and mild bladder wall thickening. RUQ ultrasound showed cholelithiasis but an otherwise normal gallbladder. Her labs showed a normal WBC count, normal lipase, and normal LFTs. Urinalysis without any evidence of UTI. She was treated with IV Zofran and Reglan in the ER at [place]. She continued to have intractable nausea and vomiting, and subsequently our service was consulted. She was directly admitted to [facility] for cholelithiasis with RUQ abdominal pain and intractable nausea and vomiting. The patient is now seen on our medical floor. She appears tired but is easily arousable to her name. She reports her abdominal pain has improved some but is still present in the RUQ. She is still pump operator. She reports her nausea has improved and she has not vomited since being admitted. Denies any urinary complaints. No other complaints at this time. She has never had this pain in the past. Her only previous abdominal surgery is a tubal ligation. Review of Systems Review of Systems: All systems reviewed & are unremarkable except as noted in HPI and below Constitutional: Constitutional: Reports as per HPI, Denies chills, Denies fatigue and Denies fever(s) Eyes: Eyes: Reports no additional eye complaints ENT: Reports system reviewed and no additional complaints, except as documented Cardiovascular: Cardiovascular: Reports no additional cardiovascular complaints, Denies chest pain and Denies leg edema Respiratory: Respiratory: Reports no additional respiratory complaints, Denies cough and Denies dyspnea Gastrointestinal: Gastrointestinal: Reports as per HPI, Reports no additional gastrointestinal complaints and Reports abdominal pain Genitourinary: Genitourinary: Denies hematuria and Denies dysuria Musculoskeletal: Musculoskeletal: Denies abnormal gait, Denies deformity, Denies joint swelling, Denies numbness and Denies tingling Integumentary/Breasts: Skin/Breast: Denies wounds and Denies jaundice Neurologic: Reports system reviewed and no additional complaints, except as documented, Reports Normal hearing present, Denies abnormal gait, Denies dizziness, Denies focal weakness, Denies numbness and Denies tingling Psychiatric: Psychiatric: Denies anxiety and Denies depression Endocrine: Endocrine: Denies fatigue [facility] Past Medical History Medical History Hypertension IDDM (insulin dependent diabetes mellitus) Surgical History Surgical History History of tubal ligation Family History Family History Father Acute myocardial infarction, Onset Age: 74 Patient's father is Sibling Family history of malignant neoplasm of uterus Patient's sister is Mother Patient's mother is Mother Hypertension Family history of elevated blood lipids Cerebrovascular accident Family history of diabetes mellitus in first degree relative Family history of coronary artery disease Patient's mother is Father Family histo
--- NOTE | 2022-02-27 13:02 | WPDANESEPPF ---
Anes - Initial Pre Proc Eval Procedure: Operation Date: 02/27/22 13:00 Proposed Procedures p Laparoscopic Cholecystectomy - Jaswinder Chavez DO Date/Time: 02/27/22 13:02 Surgeon: Jaswinder Chavez DO Pre Op Diagnosis: Cholelithiasis with cholecystitis Patient Data Age: 67 Gender: F Height: Weight: 85.7 kg Last Vital Signs Temp 97.6 F 02/27/22 10:45 Pulse 94 02/27/22 10:45 Resp 18 02/27/22 10:45 BP 149/66 H 02/27/22 10:45 Pulse Ox 93 02/27/22 10:45 Allergies Allergy/AdvReac Type Severity Reaction Status Date / Time atorvastatin Allergy Unknown Verified 04/01/20 13:51 morphine Allergy Unknown Verified 04/01/20 13:51 pravastatin Allergy Unknown Verified 04/01/20 13:51 rosuvastatin Allergy Unknown Verified 04/01/20 13:51 simvastatin Allergy Unknown Verified 04/01/20 13:51 Home Medications Medication Instructions Recorded Confirmed Type ezetimibe 10 mg PO DAILY 02/27/22 02/27/22 History insulin glargine [Lantus Solostar 40 unit SUBCUT HS 02/27/22 02/27/22 History U-100 Insulin] insulin lispro [Humalog KwikPen 14 sliding scale dose SUBCUT 02/27/22 02/27/22 History Insulin] TIDWMEAL lisinopril 5 mg PO DAILY 02/27/22 02/27/22 History Laboratory Tests 02/27/22 11:14 POC Capillary Glucose 257 mg/dl H mg/dl (65-105) Patient hx anesthesia problems: post op nausea/vomiting Family hx anesthesia problems: none Results Review: All pre-operative results and documents have been reviewed as part of the pre-operative evaluation. [facility] Past Medical History Medical History Hypertension IDDM (insulin dependent diabetes mellitus) Surgical History Surgical History History of tubal ligation Family History Family History Father Acute myocardial infarction, Onset Age: 74 Patient's father is Sibling Family history of malignant neoplasm of uterus Patient's sister is Mother Patient's mother is Mother Hypertension Family history of elevated blood lipids Cerebrovascular accident Family history of diabetes mellitus in first degree relative Family history of coronary artery disease Patient's mother is Father Family history of coronary artery disease Other Diabetes mellitus Family history of arthritis Family history of malignant neoplasm Social History Social History Social History: Lives at home with her , Levi, who would be designated as her decision-maker if necessary. She wishes to be a full code. Smoking status: Never smoker Second hand tobacco smoke exposure: No Alcohol intake: never Substance use: never Living arrangements: with family Occupation/Education: retired Gender identity (if verbalized by the patient): Female Sexual Orientation (if Verbalized by the Patient): Straight or Heterosexual Spiritual care concerns: No Anes - Eval Final PreProcedure Day of Procedure 02/27/22 13:02 Patient weight: obese Heart: regular rate and rhythm Lungs: clear to auscultation Airway: Mallampati scale class III Neurological: alert and oriented Last oral intake: >/= 8 hours ASA classification: III Emergent: no Anesthetic plan: proceed Anesthesia type and monitoring: general (RSI; states been throwing up all morning) ETT and standard monitoring Results Review: All pre-operative results and documents have been reviewed as part of the pre-operative evaluation. Informed Consent: The patient's anesthetic plan and its attendant risks and benefits were discussed with the patient/family/POA. Questions were solicited and answers provided to the satisfaction of the patient/family/POA.
[2022-02-27] MEDS: KETOROLAC 15 MG/ML VIAL (*BKC) IV PUSH (13:05)
[2022-02-27] MEDS: ACETAMINOPHEN 500 MG TABLET 1000 MG PO (13:05)
--- NOTE | 2022-02-27 13:09 | WPDHPUPDATE1 ---
History and Physical Update Update Date/Time: 02/27/22 13:09 History and Physical has been reviewed, including an updated exam of the patient. There are NO changes in the patient's condition. Risks, benefits, and alternatives have been discussed and questions answered. Patient agrees to proceed with procedure.
[2022-02-27] MEDS: LACTATED RINGERS 1,000 ML 30 ML IV CONT ×2 (13:10→14:28)
[2022-02-27] MEDS: ceFAZolin 2 GM/D5W 50 ML 2 GM/50 ML BAG IVPB (13:22)
[2022-02-27] MEDS: BUPIVACAINE HCL 0.5% PF 30 ML VIAL INFILTRATE (13:24)
--- NOTE | 2022-02-27 14:28 | W.PM.PROC2 ---
Procedure Note - Detailed Date of Procedure 02/27/22 Pre-op Diagnosis Cholelithiasis with cholecystitis Post-op Diagnosis Same (Gallbladder hydrops) Procedure Performed Laparoscopic Cholecystectomy Surgeon Jaswinder Chavez DO Anesthesia General and Local (0.5% bupivacaine) Indications This is a 67-year-old woman who presented to the emergency department in [place] with complaints of right upper quadrant pain with nausea and vomiting. She had been having constant abdominal pain since 10:00 p.m. last night. She has never experienced pain like this before. She had eaten some barbecue for dinner last night. She was found to have evidence of cholelithiasis and probable cholecystitis on imaging. Patient was transferred to [facility] for further treatment. Decision was made to proceed with laparoscopic cholecystectomy, possible open. Findings Laparoscopic cholecystectomy was performed. The gallbladder appeared dilated and was difficult to grasp initially. A laparoscopic aspirating needle was used to aspirate about 60 mL of clear mucus bile. This decompressed the gallbladder enough for to be grasped and manipulated. The gallbladder wall did appear slightly thickened and there were a couple small gallstones at the neck of the gallbladder. The cystic duct appeared normal in size. Gallbladder was removed and sent to the lab for pathology. Description of Procedure Procedure as well as risks, benefits, and alternatives were discussed with patient. Written consent was obtained and placed in chart prior to procedure. The patient was brought back to surgical suite. Patient was placed in supine position on operating table. Time-out was done to confirm patient and procedure. Patient was then intubated by the anesthesia department. Abdomen was prepped and draped in sterile fashion using chlorhexidine prep. 0.5% bupivacaine with epinephrine was infiltrated at each site of incision. A 5 millimeter incision was made near the umbilicus, and a 5 millimeter Optiview trocar was advanced through the abdominal layers under direct visualization. Once inside the abdominal cavity, carbon dioxide was insufflated to create a pneumoperitoneum. The camera was inserted and the abdomen was inspected. No immediate abnormalities were identified. The patient was placed in reverse Trendelenburg position and rotated slightly to the left. An 11 millimeter incision was made in the subxiphoid region, and an 11 millimeter trocar was inserted under direct visualization. Two 5 millimeter incisions were made in the right upper quadrant, and two 5 millimeter trocars were inserted under direct visualization. The gallbladder was identified and grasped at the fundus and retracted superiorly. It was then grasped at the infundibulum retracted laterally. Careful dissection around the neck of the gallbladder was performed using blunt dissection with a [place] grasper and hook electrocautery. The cystic duct was identified, and a window was created behind it. The cystic artery was also identified and a window was created behind it. The critical view of safety was identified, visualizing the cystic duct running directly into the neck of the gallbladder, and the cystic artery running directly into the wall of the gallbladder. A 5 millimeter clip bill distributor was then used to place 2 clips proximally and 1 clip distally on both the cystic duct and cystic artery. They were then both transected using endoscopic scissors. Once safely away from the mukul hepatitis, the gallbladder was dissected free from the liver bed using hook electrocautery. Hemostasis was achieved along the way. The gallbladder was removed completely and then removed through the subxiphoid port. The liver bed was then inspected. Hemostasis appeared adequate, and our clips appeared secure. The area was gently irrigated with sterile saline. No other abnormalities were seen. The patient was flattened out in bed, and 1 final i
--- NOTE | 2022-02-27 15:07 | SUR.PHASEI ---
attempt mad to update family member
[2022-02-27 15:17] LABS: Glucose Point of Care 227 mg/dl (65-105)
--- NOTE | 2022-02-27 15:43 | SUR.PHASEI ---
1520 - anesthesia made aware of accucheck of 227. no new orders given.
[2022-02-27] MEDS: fentaNYL CITRATE INJ (*CRX) 100 MCG/2 ML VIAL 25 MCG IV PUSH (15:50)
[2022-02-27 18:57] LABS: Glucose Point of Care 281 mg/dl (65-105)
[2022-02-27 21:21] LABS: Glucose Point of Care 295 mg/dl (65-105)
--- NOTE | 2022-03-07 10:46 | PM.DS ---
DS: Admitting Diagnosis Discharge Date 02/27/22 Admitting Diagnosis acute calculous cholecystitis, intractable nausea and vomiting, insulin-dependent diabetes, right upper quadrant pain, hypertension DS: Discharge Diagnosis Discharge Diagnosis (1) Acute calculous cholecystitis: Code(s): K80.00 - Calculus of gallbladder with acute cholecystitis without obstruction Status: Acute (2) IDDM (insulin dependent diabetes mellitus): Status: Chronic (3) Hypertension: Code(s): I10 - Essential (primary) hypertension Status: Chronic DS: Summary Hospital Course Reason for hospitalization: acute cholecystitis Hospital Course: this is a 67-year-old woman who presented to [facility] on 02/27/22 with right upper quadrant pain with intractable nausea and vomiting. Imaging showed findings consistent with acute calculous cholecystitis. Her labs overall were normal, but she was having persistent nausea and vomiting. She was transferred to [facility] for further treatment. She underwent laparoscopic cholecystectomy on 02/27/2022. Surgery was uncomplicated and she was returned to the surgical floor postoperatively. Her diet was gradually advanced to a low-fat diet as tolerated. After several hours she was tolerating her diet and remaining hemodynamically stable. She was then discharged on 02/27/2022. Status at Discharge Functional status at discharge: independent ambulation Overall status at discharge: patient is progressing back to baseline Time Spent with Patient Time attestation: Total time spent providing and/or coordinating discharge services: Time spent: Less than 30 minutes Exam Narrative: Unchanged from preoperative exam DS: Data Data Completed and Pending Completed studies during hospitalization: Pending at discharge 02/27/22 13:45 Surgical [PTH] Routine Discharge Plan Discharge Attending physician on discharge: Jaswinder Pate Consulting providers: Melissa Quiñones Discharging Clinician: Jaswinder Pate Patient Disposition: Home, Self-Care Activity: other - see discharge instructions Diet: other - see discharge instructions Wound Care Instructions: other - see discharge instructions Discharge Instructions: DISCHARGE INSTRUCTION SHEET FOR HERNIA, GALLBLADDER AND APPENDIX SURGERIES DR. PATE PATIENT TO TAKE HOME 1. May shower in 24 hours, no soaking in bath x 2weeks. 2. Call office for: Wound increasingly painful or bleeding Vomiting Fever of greater than 101 degrees 3. If no bowel movement for three days, take 1 oz. (30 ml) Milk of Magnesia or MiraLax 17g 1 to 2 times daily. 4. No heavy lifting > 10-15 pounds x weeks for hernia repairs and 2 weeks for laparoscopic cholecystectomy or appendectomy. 5. No driving for 3 days or while taking narcotic pain medications. 6. Ice to surgical site for 48 hours (30 min on, then 30 min off). 7. Up walking 10-30 minutes three times per day. 8. Resume previous home medications. 9. Follow-up 10-14 days in office for wound check or as previously scheduled. ([phone]) 10. Oral pain medications prescription to be sent to pharmacy. Take Tylenol 500mg every 6 hours and Ibuprofen 600mg every 6 hours for the first 2 days, then as needed. 11. NUTRITION: Start out by drinking fluids and increase your diet as tolerated. If you experience nausea, try dry toast, crackers, and 7-UP. If nausea or vomiting persists, contact your surgeon?s office. 12. Gallbladders-Low Fat Diet for 2 weeks (send care note of low fat diet) 13. Inguinal Hernias-wear scrotal support for 48 hours 14. Abdominal Hernias-if sent home with abdominal binder, wear for the first 2 weeks (may remove to shower or at night to sleep).
== END 2022-02-27 21:20 | disposition home or self-care (01) ==
PROVIDERS: Admitting Provider Surgery; PCP Family Medicine; Visit Provider Surgery
PROC: 0FT44ZZ Resection of Gallbladder, Percutaneous Endoscopic Approach (ICD-10-PCS; CPT 47562; principal; 2022-02-27 13:00)
DX: K80.10 Calculus of gallbladder with chronic cholecystitis without obstruction (principal); I10 Essential (primary) hypertension; E11.9 Type 2 diabetes mellitus without complications; K80.20 Calculus of gallbladder without cholecystitis without obstruction; K82.1 Hydrops of gallbladder; Z79.4 Long term (current) use of insulin
CPT/HCPCS: 47562; 36415; 82948; 86850; 86900; 86901; 88304; 96374; A9270; G0378; G0379; J0690; J1100; J1885; J2405; J2704; J2710; J3010; J7120

== ENCOUNTER 2022-03-23 13:03 | Outpatient (CLI) | payer MEDICARE, SELFPAY ==
--- NOTE | ~2022-03-23 | MM_ITS ---
EXAMINATION: MM screening [facility] BI w neri HISTORY: Screening mammogram TECHNIQUE: Craniocaudal and mediolateral oblique 3-D tomosynthesis images were obtained and synthetic 2-D images were generated. CAD analysis was submitted and interpreted. COMPARISON: 01/06/2021, 06/23/2019, 08/24/2015 BREAST PARENCHYMAL COMPOSITION: The breasts are heterogeneously dense, which may obscure small masses . FINDINGS: There is no suspicious mass, calcification, or architectural distortion to suggest malignan cy in either breast. There has been no suspicious interval change. IMPRESSION: 1. No mammographic evidence of malignancy. 2. Recommend routine screening mammography in one year. BI-RADS Category 1: Negative Reviewed, dictated and finalized at location A.
--- NOTE | ~2022-03-23 | DEXA_ITS ---
Bone Density Report Name: MONTSE WICK Age: 67 Sex: Female Ethnicity: White Date of : 1955 Indication: postmenopausal; screening for osteoporosis; height loss; prior fracture; Referring Provider: Tito Thakkar Study: Bone densitometry was performed. Exam Date: March 23, 2022 Accession number: [id number] Bone Density: Region BMD T-score Z-score Classification AP Spine(L1, L3, L4) 0.927 -1.1 0.9 Osteopenia Femoral Neck (Left) 0.773 -0.7 1.1 Normal Total Hip (Left) 0.910 -0.3 1.2 Normal Femoral Neck (Right) 0.746 -0.9 0.8 Normal Total Hip (Right) 0.858 -0.7 0.8 Normal Femoral Neck Mean 0.760 -0.8 0.9 Normal Total Hip Mean 0.884 -0.5 1.0 Normal World Health Organization criteria for BMD impression classify patients as: Normal (T-score at or above -1.0), Osteopenia (T-score between -1.0 and -2.5), or Osteoporosis (T-score at or below -2.5). 10-year Fracture Risk(1): Major Osteoporotic Fracture 13% Hip Fracture 1.1% Reported Risk Factors: [place] (), Neck BMD=0.746, BMI=31.9, previous fracture (1) FRAX(R) Version 3.08. Fracture probability calculated for an untreated patient. Fracture probability may be lower if the patient has received treatment. Clinical Information Provided by Patient: Has had a low trauma fracture Has used the following medications: Vitamin D, Calcium, multivitiman Patient maximum height was 65 Menopause Age: 38 No regular weight bearing exercise Drinks caffeinated beverages Onset of menses at age 9 Number of children 2 Impression: The patient has low bone mass, based on the Total Spine T-score. The patient has risk factors, including: previous fracture. Discussion: BONE DENSITY IS LOW AT ONE OR MORE SKELETAL SITES. This patient's lowest T-score is low at one or more skeletal sites. It meets the World Health Organization's (WHO) criteria for ?low bone mass? (T-score between -1.0 and -2.5). The patient's 10-year risk of fracture as calculated by FRAX is less than the threshold where pharmacological therapy is recommended by the National Osteoporosis Foundation (NOF). However, all treatment decisions require clinical judgment and consideration of individual patient factors, including patient preferences, comorbidities, previous drug use, risk factors not captured in the FRAX model (e.g., frailty, falls, vitamin D deficiency, increased bone turnover, interval significant decline in bone density) and possible under or overestimation of fracture risk by FRAX. The patient should follow a healthful lifestyle (good nutrition with adequate calcium and vitamin D, and appropriate weight-bearing exercise). Follow-Up: Consider repeating this study in 2 to 3 years to reassess this patient's status, or sooner if there is some n
== END 2022-03-23 13:04 | disposition home or self-care (01) ==
LOC: CHSIMG 13:05
PROVIDERS: PCP Internal Medicine; Visit Provider Internal Medicine
DX: M81.0 Age-related osteoporosis without current pathological fracture (principal); Z12.31 Encounter for screening mammogram for malignant neoplasm of breast
CPT/HCPCS: 77063; 77067; 77080

== ENCOUNTER 2022-04-05 06:55 | Outpatient (CLI) | payer MEDICARE, SELFPAY ==
[2022-04-05 07:15] LABS: Basophils Absolute Auto 0.04 K/mm3 (0.00-0.10); Basophils Percent Auto 0.7 % (0.0-1.0); Eosinophils Absolute Auto 0.16 K/mm3 (0.02-0.50); Eosinophils Percent Auto 2.9 % (1.0-6.0); Hematocrit 40.4 % (35.0-42.0); Hemoglobin 13.3 g/dL (11.7-13.8); Immature Granulocyte Absolute 0.02 K/mm3 (0.00-0.00); Immature Granulocyte Percent A 0.4 % (0.0-0.0); Lymphocytes Absolute Auto 2.25 K/mm3 (1.10-4.50); Lymphocytes Percent Auto 41.1 % (18.0-42.0); Mean Corpuscular HGB Conc 32.9 g/dL (32.0-36.0); Mean Corpuscular Volume 91.2 fL (78.0-102.0); Mean Platelet Volume 8.7 fl (9.2-11.8); Monocytes Absolute Auto 0.37 K/mm3 (0.10-0.90); Monocytes Percent Auto 6.8 % (2.0-11.0); Neutrophils Absolute Auto 2.6 K/mm3 (1.7-7.2); Neutrophils Percent Auto 48.1 % (50.0-70.0); Platelet Count Result 246 K/mm3 (150-420); Red Blood Count 4.43 M/mm3 (4.20-5.40); Red Cell Distribution Width 13.2 % (11.6-14.4); White Blood Count 5.5 K/mm3 (4.8-10.8)
[2022-04-05 07:37] LABS: Hemoglobin A1C 7.2 % (<5.7)
[2022-04-05 07:58] LABS: Alanine Aminotransferase 29 U/L (14-59); Albumin Level 3.9 g/dL (3.4-5.0); Alkaline Phosphatase 69 U/L (46-116); Anion Gap 6 mmol/L (8-16); Aspartate Amino Transferase 19 U/L (15-37); Bilirubin,Total 0.5 mg/dL (0.00-1.00); Blood Urea Nitrogen 12 mg/dL (7-18); Calcium 9.1 mg/dL (8.5-10.1); Carbon Dioxide 30 mmol/L (21-32); Chloride 107 mmol/L (98-108); Cholesterol 182 mg/dL (0-200); Creatine Kinase 53 U/L (26-192); Estimated Glomerular Filt Rate 53; Free T3 2.75 pg/mL (2.18-3.98); Free T4 Free Thyroxine 0.87 ng/dL (0.76-1.46); Glucose 92 mg/dL (70-99); HDL Direct 57 mg/dL (40-60); LDL Cholesterol Calculated 95 mg/dL (<130); Osmolality Calculated 295 mOsm/kg (285-295); Potassium 3.8 mmol/L (3.5-5.1); Sodium 143 mmol/L (136-145); Thyroid Stimulating Hormone 5.87 uIU/mL (0.36-3.74); Total Protein 7.6 g/dL (6.4-8.2); Triglycerides 152 mg/dL (0-150); Vitamin B12 729 pg/mL (193-986)
[2022-04-05 15:31] LABS: Add Urine Microscopic? YES; Appearance Urine Clear (Clear); Bilirubin Urine Negative (Negative); Blood Urine Negative (Negative); Color Urine Yellow (Yellow); Glucose Urine UA Negative (Negative); Ketones Urine Negative (Negative); Leukocyte Esterase Ur Trace (Negative); Nitrate Urine Negative (Negative); Protein Urine Negative (Negative); Urobilinogen Urine 0.2 mg/dL (0.2-1.0)
[2022-04-05 15:45] LABS: Bacteria Urine Trace /hpf; RBC Urine None seen /hpf (0-2); Squamous Epithelial Cell Urine Few /hpf (Few); WBC Urine 0-3 /hpf (0-3)
[2022-04-05 15:50] LABS: Creatinine Urine 113.12 mg/dL (40-278); MALB Creatinine Ratio 11.4 mg/g (0-30); Microalbumin Urine Random < 13.0 mg/L
[2022-04-09 20:57] LABS: Vitamin D 25 Hydroxy 65 ng/mL (30-100)
== END 2022-04-05 06:56 | disposition home or self-care (01) ==
LOC: CHSLAB 06:56
PROVIDERS: PCP Internal Medicine; Visit Provider Internal Medicine
DX: E78.2 Mixed hyperlipidemia (principal); E11.42 Type 2 diabetes mellitus with diabetic polyneuropathy; I10 Essential (primary) hypertension; R94.6 Abnormal results of thyroid function studies; E55.9 Vitamin D deficiency, unspecified
CPT/HCPCS: 36415; 80053; 80061; 81001; 82043; 82306; 82550; 82607; 83036; 84439; 84443; 84481; 85025

== ENCOUNTER 2022-07-20 07:49 | Outpatient (CLI) | payer MEDICARE, SELFPAY ==
[2022-07-20 08:02] LABS: Basophils Absolute Auto 0.04 K/mm3 (0.00-0.10); Basophils Percent Auto 0.6 % (0.0-1.0); Eosinophils Absolute Auto 0.26 K/mm3 (0.02-0.50); Eosinophils Percent Auto 3.9 % (1.0-6.0); Hematocrit 40.2 % (35.0-42.0); Hemoglobin 13.3 g/dL (11.7-13.8); Immature Granulocyte Absolute 0.02 K/mm3 (0.00-0.00); Immature Granulocyte Percent A 0.3 % (0.0-0.0); Lymphocytes Percent Auto 36.2 % (18.0-42.0); Mean Corpuscular HGB Conc 33.1 g/dL (32.0-36.0); Mean Corpuscular Hemoglobin 29.9 pg (27.0-31.0); Mean Corpuscular Volume 90.3 fL (78.0-102.0); Mean Platelet Volume 8.7 fl (9.2-11.8); Monocytes Absolute Auto 0.44 K/mm3 (0.10-0.90); Monocytes Percent Auto 6.6 % (2.0-11.0); Neutrophils Absolute Auto 3.5 K/mm3 (1.7-7.2); Neutrophils Percent Auto 52.4 % (50.0-70.0); Platelet Count Result 245 K/mm3 (150-420); Red Blood Count 4.45 M/mm3 (4.20-5.40); Red Cell Distribution Width 12.7 % (11.6-14.4); White Blood Count 6.6 K/mm3 (4.8-10.8)
[2022-07-20 08:50] LABS: Creatinine Urine 123.43 mg/dL (40-278); MALB Creatinine Ratio 10.5 mg/g (0-30); Microalbumin Urine Random < 13.0 mg/L
[2022-07-20 09:00] LABS: Alanine Aminotransferase 27 U/L (14-59); Albumin Level 3.8 g/dL (3.4-5.0); Alkaline Phosphatase 73 U/L (46-116); Anion Gap 9 mmol/L (8-16); Aspartate Amino Transferase 17 U/L (15-37); Bilirubin,Total 0.6 mg/dL (0.00-1.00); Blood Urea Nitrogen 17 mg/dL (7-18); Calcium 9.2 mg/dL (8.5-10.1); Carbon Dioxide 29 mmol/L (21-32); Chloride 105 mmol/L (98-108); Estimated Glomerular Filt Rate 47; Free T3 3.05 pg/mL (2.18-3.98); Free T4 Free Thyroxine 1.01 ng/dL (0.76-1.46); Glucose 151 mg/dL (70-99); Osmolality Calculated 300 mOsm/kg (285-295); Potassium 4.4 mmol/L (3.5-5.1); Sodium 143 mmol/L (136-145); Thyroid Stimulating Hormone 2.95 uIU/mL (0.36-3.74)
== END 2022-07-20 07:50 | disposition home or self-care (01) ==
LOC: CHSLAB 07:51
PROVIDERS: PCP Internal Medicine; Visit Provider Internal Medicine
DX: E78.2 Mixed hyperlipidemia (principal); E11.65 Type 2 diabetes mellitus with hyperglycemia; E03.4 Atrophy of thyroid (acquired)
CPT/HCPCS: 36415; 80053; 82043; 83036; 84439; 84443; 84481; 85025

== ENCOUNTER 2023-01-18 09:39 | Outpatient (CLI) | payer MEDICARE, SELFPAY ==
[2023-01-18 09:57] LABS: Basophils Absolute Auto 0.03 K/mm3 (0.00-0.10); Basophils Percent Auto 0.6 % (0.0-1.0); Eosinophils Absolute Auto 0.11 K/mm3 (0.02-0.50); Eosinophils Percent Auto 2.3 % (1.0-6.0); Hematocrit 41.8 % (35.0-42.0); Hemoglobin 13.9 g/dL (11.7-13.8); Immature Granulocyte Absolute 0.01 K/mm3 (0.00-0.00); Immature Granulocyte Percent A 0.2 % (0.0-0.0); Lymphocytes Absolute Auto 2.09 K/mm3 (1.10-4.50); Lymphocytes Percent Auto 44.6 % (18.0-42.0); Mean Corpuscular HGB Conc 33.3 g/dL (32.0-36.0); Mean Corpuscular Hemoglobin 29.8 pg (27.0-31.0); Mean Corpuscular Volume 89.5 fL (78.0-102.0); Mean Platelet Volume 8.8 fl (9.2-11.8); Monocytes Absolute Auto 0.32 K/mm3 (0.10-0.90); Monocytes Percent Auto 6.8 % (2.0-11.0); Neutrophils Absolute Auto 2.1 K/mm3 (1.7-7.2); Neutrophils Percent Auto 45.5 % (50.0-70.0); Platelet Count Result 233 K/mm3 (150-420); Red Blood Count 4.67 M/mm3 (4.20-5.40); Red Cell Distribution Width 12.9 % (11.6-14.4); White Blood Count 4.7 K/mm3 (4.8-10.8)
[2023-01-18 10:01] LABS: Appearance Urine Clear (Clear); Bilirubin Urine Negative (Negative); Blood Urine Negative (Negative); Color Urine Light Yellow (Yellow); Glucose Urine UA Negative (Negative); Ketones Urine Negative (Negative); Leukocyte Esterase Ur 2+ (Negative); Nitrate Urine Negative (Negative); Protein Urine Negative (Negative); Urobilinogen Urine 0.2 mg/dL (0.2-1.0)
[2023-01-18 10:10] LABS: Add Urine Microscopic? YES; Bacteria Urine 1+ /hpf; RBC Urine None seen /hpf (0-2); Renal Epithelial Cells Urine Few /hpf; Squamous Epithelial Cell Urine Few /hpf (Few)
[2023-01-18 10:18] LABS: Hemoglobin A1C 6.6 % (<5.7)
[2023-01-18 10:55] LABS: Alanine Aminotransferase 31 U/L (14-59); Albumin Level 4.2 g/dL (3.4-5.0); Alkaline Phosphatase 75 U/L (46-116); Anion Gap 8 mmol/L (8-16); Aspartate Amino Transferase 21 U/L (15-37); Bilirubin,Total 0.7 mg/dL (0.00-1.00); Blood Urea Nitrogen 15 mg/dL (7-18); Calcium 9.5 mg/dL (8.5-10.1); Carbon Dioxide 31 mmol/L (21-32); Chloride 106 mmol/L (98-108); Cholesterol 188 mg/dL (0-200); Creatine Kinase 60 U/L (26-192); Estimated Glomerular Filt Rate 50; Free T4 Free Thyroxine 0.96 ng/dL (0.76-1.46); Glucose 103 mg/dL (70-99); HDL Direct 62 mg/dL (40-60); LDL Cholesterol Calculated 93 mg/dL (<130); Osmolality Calculated 300 mOsm/kg (285-295); Potassium 4.1 mmol/L (3.5-5.1); Sodium 145 mmol/L (136-145); Thyroid Stimulating Hormone 2.99 uIU/mL (0.36-3.74); Total Protein 7.9 g/dL (6.4-8.2); Triglycerides 164 mg/dL (0-150)
== END 2023-01-18 09:40 | disposition home or self-care (01) ==
LOC: CHSLAB 09:41
PROVIDERS: PCP Internal Medicine; Visit Provider Internal Medicine
DX: E11.65 Type 2 diabetes mellitus with hyperglycemia (principal); I10 Essential (primary) hypertension; N18.2 Chronic kidney disease, stage 2 (mild); E03.9 Hypothyroidism, unspecified; E78.2 Mixed hyperlipidemia
CPT/HCPCS: 36415; 80053; 80061; 81001; 82550; 83036; 84439; 84443; 84481; 85025

== ENCOUNTER 2023-07-19 07:58 | Outpatient (CLI) | payer MEDICARE, SELFPAY ==
[2023-07-19 08:16] LABS: Basophils Absolute Auto 0.03 K/mm3 (0.00-0.10); Basophils Percent Auto 0.5 % (0.0-1.0); Eosinophils Absolute Auto 0.16 K/mm3 (0.02-0.50); Eosinophils Percent Auto 2.8 % (1.0-6.0); Hematocrit 41.7 % (35.0-42.0); Hemoglobin 13.5 g/dL (11.7-13.8); Immature Granulocyte Absolute 0.01 K/mm3 (0.00-0.00); Immature Granulocyte Percent A 0.2 % (0.0-0.0); Lymphocytes Absolute Auto 2.65 K/mm3 (1.10-4.50); Lymphocytes Percent Auto 46.6 % (18.0-42.0); Mean Corpuscular HGB Conc 32.4 g/dL (32.0-36.0); Mean Corpuscular Hemoglobin 29.6 pg (27.0-31.0); Mean Corpuscular Volume 91.4 fL (78.0-102.0); Mean Platelet Volume 8.8 fl (9.2-11.8); Monocytes Absolute Auto 0.42 K/mm3 (0.10-0.90); Monocytes Percent Auto 7.4 % (2.0-11.0); Neutrophils Absolute Auto 2.4 K/mm3 (1.7-7.2); Neutrophils Percent Auto 42.5 % (50.0-70.0); Platelet Count Result 246 K/mm3 (150-420); Red Blood Count 4.56 M/mm3 (4.20-5.40); White Blood Count 5.7 K/mm3 (4.8-10.8)
[2023-07-19 08:24] LABS: Hemoglobin A1C 7.1 % (<5.7)
[2023-07-19 09:03] LABS: Alanine Aminotransferase 24 U/L (14-59); Albumin Level 3.8 g/dL (3.4-5.0); Alkaline Phosphatase 74 U/L (46-116); Anion Gap 9 mmol/L (8-16); Aspartate Amino Transferase 15 U/L (15-37); Bilirubin,Total 0.7 mg/dL (0.00-1.00); Blood Urea Nitrogen 22 mg/dL (7-18); Carbon Dioxide 28 mmol/L (21-32); Chloride 105 mmol/L (98-108); Cholesterol 186 mg/dL (0-200); Creatine Kinase 69 U/L (26-192); Estimated Glomerular Filt Rate 51; Free T3 2.97 pg/mL (2.18-3.98); Free T4 Free Thyroxine 0.96 ng/dL (0.76-1.46); Glucose 105 mg/dL (70-99); HDL Direct 54 mg/dL (40-60); LDL Cholesterol Calculated 97 mg/dL (<130); Osmolality Calculated 297 mOsm/kg (285-295); Potassium 4.2 mmol/L (3.5-5.1); Sodium 142 mmol/L (136-145); Thyroid Stimulating Hormone 5.15 uIU/mL (0.36-3.74); Total Protein 7.3 g/dL (6.4-8.2); Triglycerides 173 mg/dL (0-150)
== END 2023-07-19 07:59 | disposition home or self-care (01) ==
LOC: CHSLAB 08:00
PROVIDERS: PCP Internal Medicine; Visit Provider Internal Medicine
DX: E11.42 Type 2 diabetes mellitus with diabetic polyneuropathy (principal); E78.2 Mixed hyperlipidemia; E03.4 Atrophy of thyroid (acquired); I10 Essential (primary) hypertension
CPT/HCPCS: 36415; 80053; 80061; 82550; 83036; 84439; 84443; 84481; 85025

== ENCOUNTER 2023-07-23 09:33 | Outpatient (CLI) | payer MEDICARE, SELFPAY ==
[2023-07-23 09:48] LABS: Appearance Urine Clear (Clear); Bilirubin Urine Negative (Negative); Blood Urine Negative (Negative); Color Urine Light Yellow (Yellow); Glucose Urine UA Negative (Negative); Ketones Urine Negative (Negative); Leukocyte Esterase Ur Trace (Negative); Nitrate Urine Negative (Negative); Protein Urine Negative (Negative); Urobilinogen Urine 0.2 mg/dL (0.2-1.0)
[2023-07-23 09:54] LABS: Add Urine Microscopic? YES; Bacteria Urine Trace /hpf; RBC Urine None seen /hpf (0-2); Renal Epithelial Cells Urine Few /hpf; Squamous Epithelial Cell Urine Few /hpf (Few); WBC Urine 0-3 /hpf (0-3)
[2023-07-23 10:19] LABS: Creatinine Urine 39.15 mg/dL (40-278); MALB Creatinine Ratio 33.2 mg/g (0-30); Microalbumin Urine Random < 13.0 mg/L
== END 2023-07-23 09:34 | disposition home or self-care (01) ==
LOC: CHSLAB 09:34
PROVIDERS: PCP Internal Medicine; Visit Provider Internal Medicine
DX: E11.42 Type 2 diabetes mellitus with diabetic polyneuropathy (principal); E78.2 Mixed hyperlipidemia; E03.4 Atrophy of thyroid (acquired); I10 Essential (primary) hypertension
CPT/HCPCS: 81001; 82043

== ENCOUNTER 2023-10-21 07:00 | Day surgery (SDC) | payer MEDICARE, SELFPAY ==
[2023-09-24 15:05] VITALS: BMI 33.7
[2023-10-21 07:54] VITALS: BP 130/73; PULSE 91; RESP 16; TEMP 36.7; O2SAT 100
[2023-10-21] MEDS: LACTATED RINGERS 1,000 ML 150 ML IV CONT (08:07)
[2023-10-21 08:09] LABS: Glucose Point of Care 116 mg/dl (65-105)
--- NOTE | 2023-10-21 09:08 | WPDANESEPPF ---
Anes - Initial Pre Proc Eval Procedure: Operation Date: 10/21/23 09:15 Proposed Procedures p Screening Colonoscopy - Jaswinder Chavez DO Date/Time: 10/21/23 09:08 Surgeon: Jaswinder Chavez DO Pre Op Diagnosis: Neoplasm Screening Patient Data Age: 68 Gender: F Height: 1.6 m Weight: 85 kg Last Vital Signs Temp 36.7 C 10/21/23 07:54 Pulse 91 10/21/23 07:54 Resp 16 10/21/23 07:54 BP 130/73 10/21/23 07:54 Pulse Ox 100 10/21/23 07:54 O2 Del Method Room Air 10/21/23 07:54 Allergies Allergy/AdvReac Type Severity Reaction Status Date / Time atorvastatin Allergy Unknown Muscle Pain Verified 10/21/23 07:53 morphine Allergy Unknown Muscle Pain Verified 10/21/23 07:53 pravastatin Allergy Unknown Muscle Pain Verified 10/21/23 07:53 simvastatin Allergy Unknown Muscle Pain Verified 10/21/23 07:53 Home Medications Medication Instructions Recorded Confirmed Type insulin glargine 100 unit/mL (3 40 unit subcut HS 02/27/22 10/21/23 History mL) subcutaneous pen (Lantus Solostar U-100 Insulin) insulin lispro 100 unit/mL 14 sliding scale dose subcut 02/27/22 10/21/23 History subcutaneous pen (Humalog KwikPen TIDWMEAL (U-100) Insulin) lisinopril 5 mg tablet 5 mg PO DAILY 02/27/22 10/21/23 History levothyroxine 25 mcg tablet 25 mcg PO DIRECTED 10/02/23 10/21/23 History rosuvastatin 10 mg tablet 10 mg PO DIRECTED 10/02/23 10/21/23 History Laboratory Tests 10/21/23 08:04 POC Capillary Glucose 116 H mg/dl (65-105) Patient hx anesthesia problems: none Family hx anesthesia problems: none Results Review: All pre-operative results and documents have been reviewed as part of the pre-operative evaluation. [facility] Past Medical History Medical History (Updated 10/21/23 @ 09:08 by Derik Gutierrez MD) Hypertension IDDM (insulin dependent diabetes mellitus) Obesity Surgical History Surgical History History of tubal ligation Hx laparoscopic cholecystectomy 02/27/2022 Family History Family History Father Acute myocardial infarction, Onset Age: 74 Patient's father is Sibling Family history of malignant neoplasm of uterus Patient's sister is Mother Patient's mother is Mother Hypertension Family history of elevated blood lipids Cerebrovascular accident Family history of diabetes mellitus in first degree relative Family history of coronary artery disease Patient's mother is Father Family history of coronary artery disease Other Diabetes mellitus Family history of arthritis Family history of malignant neoplasm Social History Social History Social History: Lives at home with her , Levi, who would be designated as her decision-maker if necessary. She wishes to be a full code. Smoking status: Never smoker Second hand tobacco smoke exposure: No Alcohol intake: never Substance use: never Substance use type: does not use Living arrangements: with family Occupation/Education: retired Gender identity (if verbalized by the patient): Female Sexual Orientation (if Verbalized by the Patient): Straight or Heterosexual Spiritual care concerns: No Anes - Eval Final PreProcedure Day of Procedure 10/21/23 09:08 Patient weight: obese Heart: regular rate and rhythm Lungs: clear to auscultation Airway: Mallampati scale class II Neurological: alert and oriented Last oral intake: >/= 8 hours ASA classification: III Emergent: no Anesthetic plan: proceed Anesthesia type and monitoring: general GIVS and standard monitoring Results Review: All pre-operative results and documents have been reviewed as part of the pre-operative evaluation. Informed Consent: The patient's anesthetic
--- NOTE | 2023-10-21 09:33 | PM.IMHP ---
H&P: HPI History of Present Illness Date/Time: 10/21/23 09:33 Chief Complaint: screening for colorectal cancer Narrative: this is a 68-year-old woman who presents for colonoscopy. Her last colonoscopy was at least 10 years ago. She denies any hematochezia or melena. She denies any family history of colon cancer. Review of Systems Review of Systems: All systems reviewed & are unremarkable except as noted in HPI and below Constitutional: Constitutional: Denies chills, Denies fever(s), Denies headache(s) and Denies weight loss Eyes: Eyes: Denies change in vision ENT: Denies dizziness, Denies headache(s), Denies neck mass and Denies throat swelling Cardiovascular: Cardiovascular: Denies chest pain, Denies lightheadedness and Denies dyspnea Respiratory: Respiratory: Denies cough, Denies dyspnea and Denies wheezing Gastrointestinal: Gastrointestinal: Denies abdominal pain, Denies change in bowel habits, Denies nausea and Denies vomiting Genitourinary: Genitourinary: Denies hematuria and Denies dysuria Musculoskeletal: Musculoskeletal: Reports as per HPI Integumentary/Breasts: Skin/Breast: Reports as per HPI Neurologic: Denies dizziness and Denies headache(s) Allergic/Immunologic: Allergic/Immunologic: Denies throat swelling and Denies wheezing PMF Past Medical History Medical History (Updated 10/21/23 @ 09:33 by Jaswinder Chavez DO) Hypertension IDDM (insulin dependent diabetes mellitus) Obesity Surgical History Surgical History History of tubal ligation Hx laparoscopic cholecystectomy 02/27/2022 Family History Family History Father Acute myocardial infarction, Onset Age: 74 Patient's father is Sibling Family history of malignant neoplasm of uterus Patient's sister is Mother Patient's mother is Mother Hypertension Family history of elevated blood lipids Cerebrovascular accident Family history of diabetes mellitus in first degree relative Family history of coronary artery disease Patient's mother is Father Family history of coronary artery disease Other Diabetes mellitus Family history of arthritis Family history of malignant neoplasm Social History Social History Social History: Lives at home with her , Levi, who would be designated as her decision-maker if necessary. She wishes to be a full code. Smoking status: Never smoker Second hand tobacco smoke exposure: No Alcohol intake: never Substance use: never Substance use type: does not use Living arrangements: with family Occupation/Education: retired Gender identity (if verbalized by the patient): Female Sexual Orientation (if Verbalized by the Patient): Straight or Heterosexual Spiritual care concerns: No Meds Home Medications and Allergies Home Medications Medication Instructions Recorded Confirmed Type insulin glargine 100 unit/mL (3 40 unit subcut HS 02/27/22 10/21/23 History mL) subcutaneous pen (Lantus Solostar U-100 Insulin) insulin lispro 100 unit/mL 14 sliding scale dose subcut 02/27/22 10/21/23 History subcutaneous pen (Humalog KwikPen TIDWMEAL (U-100) Insulin) lisinopril 5 mg tablet 5 mg PO DAILY 02/27/22 10/21/23 History levothyroxine 25 mcg tablet 25 mcg PO DIRECTED 10/02/23 10/21/23 History rosuvastatin 10 mg tablet 10 mg PO DIRECTED 10/02/23 10/21/23 History Allergies Allergy/AdvReac Type Severity Reaction Status Date / Time atorvastatin Allergy Unknown Muscle Pain Verified 10/21/23 07:53 morphine Allergy Unknown Muscle Pain Verified 10/21/23 07:53 pravastatin Allergy Unknown Muscle Pain Verified 10/21/23 07:53 simvastatin Allergy Unknown Muscle Pain Verified 10/21/23 07:53 Vital Signs Vital Signs - 24
[2023-10-21 10:06] VITALS: BP 97/60; PULSE 82; RESP 18; O2SAT 96
[2023-10-21 10:16] VITALS: BP 107/68; PULSE 84; RESP 18; O2SAT 96
--- NOTE | 2023-10-21 10:18 | WPDANESPN ---
Anes - Prog Note Post-Op Date/Time: 10/21/23 10:18 Cardiovascular status: normal Respiratory status: normal Airway patency: baseline Mental status: baseline Post-Op hydration status: normal Vital Signs: Last Vital Signs Temp 36.7 C 10/21/23 07:54 Pulse 82 10/21/23 10:06 Resp 18 10/21/23 10:06 BP 97/60 L 10/21/23 10:06 Pulse Ox 96 10/21/23 10:06 O2 Del Method Room Air 10/21/23 10:06 Pain Score (VAS): 0/10 I/O: Intake & Output 10/20/23 10/21/23 10/21/23 23:59 07:59 15:59 Intake Total 350 Balance 350 10/21/23 08:04 POC Capillary Glucose 116 H Patient Feedback: Patient satisfied with anesthetic care.
[2023-10-21 10:26] VITALS: BP 122/72; PULSE 76; RESP 16; O2SAT 98
== END 2023-10-21 10:50 | disposition home or self-care (01) ==
PROVIDERS: PCP Internal Medicine; Visit Provider Surgery
PROC: 0DJD8ZZ Inspection of Lower Intestinal Tract, Via Natural or Artificial Opening Endoscopic (ICD-10-PCS; CPT 45378; principal; 2023-10-21 09:15)
DX: Z12.11 Encounter for screening for malignant neoplasm of colon (principal)
CPT/HCPCS: 45378; G0121

== ENCOUNTER 2023-12-06 06:58 | Outpatient (CLI) | payer MEDICARE, SELFPAY ==
[2023-12-06 08:06] LABS: Alanine Aminotransferase 24 U/L (14-59); Albumin Level 3.9 g/dL (3.4-5.0); Alkaline Phosphatase 71 U/L (46-116); Anion Gap 8 mmol/L (8-16); Aspartate Amino Transferase 23 U/L (15-37); Bilirubin,Total 0.7 mg/dL (0.00-1.00); Blood Urea Nitrogen 12 mg/dL (7-18); Calcium 9.4 mg/dL (8.5-10.1); Carbon Dioxide 34 mmol/L (21-32); Chloride 105 mmol/L (98-108); Estimated Glomerular Filt Rate 52; Free T4 Free Thyroxine 0.94 ng/dL (0.76-1.46); Glucose 77 mg/dL (70-99); Osmolality Calculated 302 mOsm/kg (285-295); Sodium 147 mmol/L (136-145); Thyroid Stimulating Hormone 4.14 uIU/mL (0.36-3.74); Total Protein 7.3 g/dL (6.4-8.2)
== END 2023-12-06 06:59 | disposition home or self-care (01) ==
LOC: CHSLAB 07:01
PROVIDERS: PCP Internal Medicine; Visit Provider Internal Medicine
DX: I10 Essential (primary) hypertension (principal); E11.65 Type 2 diabetes mellitus with hyperglycemia; E03.4 Atrophy of thyroid (acquired)
CPT/HCPCS: 36415; 80053; 83036; 84439; 84443; 84481

== ENCOUNTER 2024-03-13 09:18 | Outpatient (CLI) | payer MEDICARE, SELFPAY ==
[2024-03-13 09:45] LABS: Hemoglobin 13.4 g/dL (11.7-13.8); Mean Corpuscular HGB Conc 32.7 g/dL (32-36); Mean Corpuscular Hemoglobin 29.4 pg (27.0-31.0); Mean Corpuscular Volume 89.9 fL (78.0-102.0); Mean Platelet Volume 8.9 fl (9.2-11.8); Platelet Count Result 232 K/mm3 (150-420); Red Blood Count 4.56 M/mm3 (4.20-5.40); Red Cell Distribution Width 12.6 % (11.6-14.4); White Blood Count 5.7 K/mm3 (4.8-10.8)
[2024-03-13 09:51] LABS: Appearance Urine Clear (Clear); Bilirubin Urine Negative (Negative); Blood Urine Negative (Negative); Color Urine Light Yellow (Yellow); Glucose Urine UA Negative (Negative); Ketones Urine Negative (Negative); Leukocyte Esterase Ur 1+ LEU/UL (Negative); Nitrate Urine Negative (Negative); Protein Urine Negative (Negative); Urobilinogen Urine 0.2 mg/dL (0.2-1.0)
[2024-03-13 09:54] LABS: Creatinine Urine 125.44 mg/dL (40-278); MALB Creatinine Ratio 10.3 mg/g (0-30); Microalbumin Urine Random < 13.0 mg/L
[2024-03-13 10:01] LABS: Hemoglobin A1C 5.8 % (<5.7)
[2024-03-13 10:22] LABS: Add Urine Microscopic? YES
[2024-03-13 10:23] LABS: RBC Urine None seen /hpf (0-2); Squamous Epithelial Cell Urine Few /hpf (Few); WBC Urine 0-3 /hpf (0-3)
[2024-03-13 10:25] LABS: Alanine Aminotransferase 28 U/L (14-59); Alkaline Phosphatase 73 U/L (46-116); Anion Gap 8 mmol/L (4-12); Aspartate Amino Transferase 22 U/L (15-37); Bilirubin,Total 0.8 mg/dL (0.00-1.00); Blood Urea Nitrogen 23 mg/dL (7-18); Calcium 9.4 mg/dL (8.5-10.1); Carbon Dioxide 32 mmol/L (21-32); Chloride 104 mmol/L (98-108); Cholesterol 171 mg/dL (0-200); Creatine Kinase 70 U/L (26-192); Estimated Glomerular Filt Rate 48; Free T3 2.76 pg/mL (2.18-3.98); Free T4 Free Thyroxine 0.96 ng/dL (0.76-1.46); Glucose 109 mg/dL (70-99); HDL Direct 60 mg/dL (40-60); LDL Cholesterol Calculated 94 mg/dL (<130); Osmolality Calculated 302 mOsm/kg (285-295); Potassium 4.3 mmol/L (3.5-5.1); Sodium 144 mmol/L (136-145); Thyroid Stimulating Hormone 3.18 uIU/mL (0.36-3.74); Total Protein 7.8 g/dL (6.4-8.2); Triglycerides 83 mg/dL (0-150)
== END 2024-03-13 09:19 | disposition home or self-care (01) ==
LOC: CHSLAB 09:23
PROVIDERS: PCP Internal Medicine; Visit Provider Internal Medicine
DX: E11.65 Type 2 diabetes mellitus with hyperglycemia (principal); E78.2 Mixed hyperlipidemia; I10 Essential (primary) hypertension; E03.9 Hypothyroidism, unspecified; N39.0 Urinary tract infection, site not specified
CPT/HCPCS: 36415; 80053; 80061; 81001; 82043; 82550; 83036; 84439; 84443; 84481; 85027; 87086

== ENCOUNTER 2024-04-10 10:35 | Outpatient (CLI) | payer MEDICARE, SELFPAY ==
--- NOTE | ~2024-04-10 | MM_ITS ---
EXAMINATION: MM screening [facility] BI w neri HISTORY: Screening mammogram TECHNIQUE: Craniocaudal and mediolateral oblique 3-D tomosynthesis images were obtained and synthetic 2-D images were generated. CAD analysis was submitted and interpreted. COMPARISON: 03/23/2022, 01/06/2021, 06/23/2019 BREAST PARENCHYMAL COMPOSITION:Not Dense. There are scattered areas of fibroglandular density. FINDINGS: No suspicious mass, calcification, or architectural distortion are identified in either martinez ast to suggest malignancy. There has been no suspicious interval change. IMPRESSION: No mammographic evidence of malignancy. Recommend routine screening mammography in one year. BI-RADS Category 1: Negative Reviewed, dictated and finalized at location .
--- NOTE | ~2024-04-10 | DEXA_ITS ---
? Bone Density Report? Name:? MONTSE WICK Patient ID:??? [id number] Age:? 69 Sex:? Female Ethnicity:? White Date of : 1955 Indication: postmenopausal; screening for osteoporosis; height loss; inflammatory bowel disease; prior fracture; Referring Provider: Tito Thakkar Study: Bone densitometry was performed. Exam Date: April 10, 2024 Accession number: [id number] Bone Density: Region?BMD??? T-score? Z-score?? Classification AP Spine(L1, L3, L4)? 0.967?? -0.8?1.4? Normal Femoral Neck (Left)? 0.735?? -1.0? 0.8? Normal Total Hip (Left)?0.941??? 0.0? 1.6? Normal Femoral Neck (Right)? 0.699?? -1.3? 0.5? Osteopenia Total Hip (Right)? 0.871?? -0.6? 1.0? Normal Femoral Neck Mean? 0.717?? -1.2? 0.7? Osteopenia Total Hip Mean? 0.906?? -0.3? 1.3? Normal World Health Organization criteria for BMD impression classify patients as: Normal (T-score at or above -1.0), Osteopenia (T-score between -1.0 and -2.5), or Osteoporosis (T-score at or below -2.5). 10-year Fracture Risk(1): Major Osteoporotic Fracture? 15% Hip Fracture? 1.9% Reported Risk Factors: [place] (), Neck BMD=0.699, BMI=31.9, previous fracture (1) FRAX? Version 3.08. Fracture probability calculated for an untreated patient. Fracture probability may be lower if the patient has received treatment. Clinical Information Provided by Patient: Has had a low trauma fracture Has used the following medications: Vitamin D, Calcium, multivitiman Has the following medical conditions: Inflammatory bowel diseases Patient maximum height was 65 Menopause Age: 38 No regular weight bearing exercise Drinks caffeinated beverages Onset of menses at age 9 Number of children 2 Impression: The patient has low bone mass, based on the Right Femoral Neck T- score. The patient has risk factors, including: previous fracture. Discussion: BONE DENSITY IS LOW AT ONE OR MORE SKELETAL SITES. This patient's lowest T-score is low at one or more skeletal sites.? It meets the World Health Organization's (WHO) criteria for ?low bone mass?? (T-score between -1.0 and -2.5).? The patient's 10-year risk of fracture as calculated by FRAX is less than the threshold where pharmacological therapy is recommended by the National Osteoporosis Foundation (NOF).? However, all treatment decisions require clinical judgment and consideration of individual patient factors, including patient preferences, comorbidities, previous drug use, risk factors not captured in the FRAX model (e.g., frailty, falls, vitamin D deficiency, increased bone turnover, interval significant decline in bone
== END 2024-04-10 10:36 | disposition home or self-care (01) ==
LOC: CHSIMG 10:38
PROVIDERS: PCP Internal Medicine; Visit Provider Internal Medicine
DX: Z12.31 Encounter for screening mammogram for malignant neoplasm of breast (principal); Z78.0 Asymptomatic menopausal state; M85.88 Other specified disorders of bone density and structure, other site
CPT/HCPCS: 77063; 77067; 77080

== ENCOUNTER 2024-09-16 08:39 | Outpatient (CLI) | payer MEDICARE, SELFPAY ==
[2024-09-16 09:05] LABS: Hematocrit 39.4 % (35.0-42.0); Hemoglobin 13.4 g/dL (11.7-13.8); Mean Corpuscular Volume 88.3 fL (78.0-102.0); Mean Platelet Volume 8.8 fl (9.2-11.8); Platelet Count Result 220 K/mm3 (150-420); Red Blood Count 4.46 M/mm3 (4.20-5.40); Red Cell Distribution Width 12.7 % (11.6-14.4); White Blood Count 5.4 K/mm3 (4.8-10.8)
[2024-09-16 09:15] LABS: Hemoglobin A1C 6.2 % (<5.7)
[2024-09-16 10:16] LABS: Alanine Aminotransferase 30 U/L (14-59); Albumin Level 3.6 g/dL (3.4-5.0); Alkaline Phosphatase 82 U/L (46-116); Anion Gap 6 mmol/L (4-12); Aspartate Amino Transferase 15 U/L (15-37); Bilirubin,Total 0.6 mg/dL (0.00-1.00); Blood Urea Nitrogen 13 mg/dL (7-18); Calcium 9.3 mg/dL (8.5-10.1); Carbon Dioxide 30 mmol/L (21-32); Chloride 106 mmol/L (98-108); Cholesterol 160 mg/dL (0-200); Creatine Kinase 53 U/L (26-192); Estimated Glomerular Filt Rate 53; Free T3 2.64 pg/mL (2.18-3.98); Free T4 Free Thyroxine 0.85 ng/dL (0.76-1.46); Glucose 98 mg/dL (70-99); HDL Direct 56 mg/dL (40-60); LDL Cholesterol Calculated 76 mg/dL (<130); Osmolality Calculated 294 mOsm/kg (285-295); Potassium 4.1 mmol/L (3.5-5.1); Sodium 142 mmol/L (136-145); Thyroid Stimulating Hormone 3.32 uIU/mL (0.36-3.74); Triglycerides 140 mg/dL (0-150)
== END 2024-09-16 08:40 | disposition home or self-care (01) ==
PROVIDERS: PCP Internal Medicine; Visit Provider Internal Medicine
DX: E11.9 Type 2 diabetes mellitus without complications (principal); I10 Essential (primary) hypertension; E03.4 Atrophy of thyroid (acquired); E78.2 Mixed hyperlipidemia; G62.9 Polyneuropathy, unspecified
CPT/HCPCS: 36415; 80053; 80061; 82550; 83036; 84439; 84443; 84481; 85027

== ENCOUNTER 2024-09-18 11:27 | Outpatient (CLI) | payer MEDICARE, SELFPAY ==
[2024-09-18 11:57] LABS: Appearance Urine Clear (Clear); Bilirubin Urine Negative (Negative); Blood Urine Negative (Negative); Color Urine Light Yellow (Yellow); Glucose Urine UA Negative (Negative); Ketones Urine Negative (Negative); Nitrate Urine Negative (Negative); Protein Urine Negative (Negative); Specific Grav Ur <= 1.005 (1.010-1.020); Urobilinogen Urine 0.2 mg/dL (0.2-1.0)
[2024-09-18 11:59] LABS: Add Urine Microscopic? NO; Leukocyte Esterase Ur Negative (Negative)
[2024-09-18 12:07] LABS: Creatinine Urine 19.87 mg/dL (40-278)
[2024-09-18 12:11] LABS: MALB Creatinine Ratio 6.5 mg/g (0-30); Microalbumin Urine Random < 1.3 mg/L
== END 2024-09-18 11:28 | disposition home or self-care (01) ==
LOC: CHSLAB 11:31
PROVIDERS: PCP Internal Medicine; Visit Provider Internal Medicine
DX: E11.9 Type 2 diabetes mellitus without complications (principal); I10 Essential (primary) hypertension; E03.4 Atrophy of thyroid (acquired); E78.2 Mixed hyperlipidemia; G62.9 Polyneuropathy, unspecified
CPT/HCPCS: 81003; 82043

== ENCOUNTER 2025-03-19 08:29 | Outpatient (CLI) | payer MEDICARE, SELFPAY ==
[2025-03-19 09:04] LABS: Hematocrit 41.8 % (35.0-42.0); Hemoglobin 13.7 g/dL (11.7-13.8); Mean Corpuscular HGB Conc 32.8 g/dL (32-36); Mean Corpuscular Hemoglobin 29.1 pg (27.0-31.0); Mean Corpuscular Volume 88.7 fL (78.0-102.0); Mean Platelet Volume 8.5 fl (9.2-11.8); Platelet Count Result 207 K/mm3 (150-420); Red Blood Count 4.71 M/mm3 (4.20-5.40); Red Cell Distribution Width 12.7 % (11.6-14.4); White Blood Count 4.9 K/mm3 (4.8-10.8)
[2025-03-19 12:20] LABS: Creatine Kinase 47 U/L (30-135); Potassium 4.2 mmol/L (3.4-5.0)
[2025-03-19 12:43] LABS: Add Urine Microscopic? YES; Appearance Urine Clear (Clear); Bilirubin Urine Negative (Negative); Blood Urine Negative (Negative); Color Urine Light Yellow (Yellow); Glucose Urine UA Negative (Negative); Ketones Urine Negative (Negative); Leukocyte Esterase Ur Trace (Negative); Nitrate Urine Negative (Negative); Protein Urine Negative (Negative); Urobilinogen Urine 0.2 mg/dL (0.2-1.0)
[2025-03-19 12:44] LABS: Hemoglobin A1C 6.2 % (<5.7)
[2025-03-19 13:15] LABS: Alanine Aminotransferase 26 U/L (6-35); Albumin Level 4.3 g/dL (3.5-5.1); Alkaline Phosphatase 90 U/L (38-126); Anion Gap 7 mmol/L (4-12); Aspartate Amino Transferase 31 U/L (14-36); Bilirubin,Total 0.8 mg/dL (0.2-1.3); Blood Urea Nitrogen 16 mg/dL (7-17); Calcium 9.3 mg/dL (8.4-10.2); Carbon Dioxide 27 mmol/L (22-30); Chloride 106 mmol/L (98-107); Cholesterol 184 mg/dL (0-200); Estimated Glomerular Filt Rate > 60; Glucose 189 mg/dL (65-110); HDL Direct 56 mg/dL; LDL Cholesterol Calculated 86 mg/dL (<130); Osmolality Calculated 296 mOsm/kg (285-295); Sodium 140 mmol/L (137-145); Total Protein 7.2 g/dL (6.3-8.2); Triglycerides 208 mg/dL (<150)
[2025-03-19 13:31] LABS: Free T4 Free Thyroxine 1.06 ng/dL (0.78-2.19)
[2025-03-19 13:31] LABS: Bacteria Urine None seen /hpf; RBC Urine None seen /hpf (0-2); Squamous Epithelial Cell Urine Few /hpf (Few); WBC Urine 0-3 /hpf (0-3)
[2025-03-19 15:16] LABS: Free T3 3.84 pg/mL (2.18-3.98)
== END 2025-03-19 08:30 | disposition home or self-care (01) ==
LOC: CHSLAB 08:31
PROVIDERS: PCP Internal Medicine; Visit Provider Internal Medicine
DX: E11.65 Type 2 diabetes mellitus with hyperglycemia (principal); I10 Essential (primary) hypertension; E78.2 Mixed hyperlipidemia; E03.4 Atrophy of thyroid (acquired); G62.9 Polyneuropathy, unspecified
CPT/HCPCS: 36415; 80053; 80061; 81001; 82550; 82607; 83036; 84439; 84443; 84481; 85027

== ENCOUNTER 2025-03-24 16:49 | Outpatient (CLI) | payer MEDICARE, SELFPAY | END 2025-03-24 16:50 | disposition home or self-care (01) | PROVIDERS: PCP Internal Medicine; Visit Provider Internal Medicine | DX: I73.9 Peripheral vascular disease, unspecified (principal) | CPT/HCPCS: 73610 ==

== ENCOUNTER 2025-04-14 14:12 | Outpatient (CLI) | payer MEDICARE, SELFPAY ==
--- NOTE | ~2025-04-14 | US_ITS ---
Ankle Brachial Index with Ultrasound Dopplers and Pulse Volume Recordings Technique: Pressures in the arm and lower extremity were obtained. Additionally, arterial and pulse v olume waveforms were obtained bilaterally. Findings: Segmental pressures Right posterior tibial: 165 Right dorsalis pedis: 153 Left posterior tibial: 165 Left dorsalis pedis: 153 There are biphasic waveforms bilaterally within the bilateral lower extremities with monophasic wavef orms in the bilateral great toes. MONTSERRAT Right 1.31 Left 1.31 TBI Right 0.86 Left 0.60 Impression: Artificially elevated MONTSERRAT bilaterally in this diabetic patient. Based on the TBI, there is significant peripheral vascular disease in the left lower extremity. Reviewed, dictated and finalized at location A. Impression: Artificially elevated MONTSERRAT bilaterally in this diabetic patient. Based on the TBI, there is significant peripheral vascular disease in the left lower extremity.
== END 2025-04-14 14:13 | disposition home or self-care (01) ==
LOC: CHSIMG 14:15
PROVIDERS: PCP Internal Medicine; Visit Provider Internal Medicine
DX: I73.9 Peripheral vascular disease, unspecified (principal); M25.572 Pain in left ankle and joints of left foot
CPT/HCPCS: 93922

== ENCOUNTER 2025-04-28 15:34 | Outpatient (CLI) | payer MEDICARE, SELFPAY ==
--- NOTE | ~2025-04-28 | CT_ITS ---
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 COMPARISON: Abnormal MONTSERRAT and PVR in the left lower extremity, specifically abnormal TBI. TECHNIQUE: Computed tomography angiography (CTA) of the abdominal aorta with runoff was performed wit h 100 mL Omnipaque-350 intravenous contrast timed to evaluate the abdominal aorta, mesenteric and per ipheral lower extremity vasculature. Coronal maximum intensity projection 3D-reconstructions were created by the technologist. The dose-length product (DLP) was 937.09 mGy-cm. Automated exposure control and iterative reconstruction technique were employed. FINDINGS/OBSERVATIONS: Liver: The visualized portion of the liver enhances homogeneously and is not enlarged. Gallbladder and biliary system: The gallbladder is surgically absent. Pancreas: The visualized portion of the pancreas enhances homogeneously without ductal dilatation. Spleen: The visualized portion of the spleen enhances homogeneously without enlargement. Kidneys: Multiple foci of fluid attenuation are identified within the bilateral kidneys, left greater than right. These are too small to characterize on the current examination. The remainder of the bilateral kidneys otherwise enhance symmetrically without hydronephrosis or obst ructing renal calculi. Adrenal glands: Unremarkable. Gastrointestinal tract: Fecal stasis within the colon. Appendix: Surgically absent. Vasculature: The visualized portion of the thoracic aorta is nonaneurysmal. The abdominal aorta is nonaneurysmal without ductal dilatation. The celiac origin is patent. The superior mesenteric artery is also patent. The inferior mesenteric artery is diminutive but patent. The bilateral renal arteries are patent, and otherwise unremarkable. The right common iliac artery is patent without calcified atherosclerosis. The right internal and external iliac arteries are patent, without aneurysmal dilatation or significa nt stenosis. The right common femoral artery is patent without aneurysmal dilatation or significant stenosis. The right superficial femoral artery and profunda femoral artery are both patent and without signific ant stenosis, aneurysmal dilatation or dissection. The right popliteal artery is patent, of normal caliber, and without aneurysmal dilatation or dissect ion. Three-vessel runoff is identified within the right calf with two-vessel runoff into the right foot. The left common iliac artery is patent without calcified atherosclerosis. The left internal and external iliac arteries are patent, without aneurysmal dilatation or significan t stenosis. The left common femoral artery is patent without aneurysmal dilatation or significant stenosis. The left superficial femoral artery and profunda femoral artery are both patent and without significa nt stenosis, aneurysmal dilatation or dissection. The left popliteal artery is patent, of normal caliber, and without aneurysmal dilatation or dissecti on. Three-vessel runoff is identified within the left calf with two-vessel runoff into the left foot. Lymph nodes: No pathologically enlarged or morphologically suspicious lymph nodes within the retroperitoneum, or t he root of the mesentery. Pelvic structures: The bladder is only minimally distended. The uterus is anteverted and retroflexed and otherwise unremarkable. Body wall and musculoskeletal: Small fat-containing umbilical hernia. IMPRESSION: No aneurysmal dilatation or dissection is identified within the abdominal aorta, or bilateral lower e xtremities. No inflow disease is identified. Three-vessel runoff into the bilateral calves with 2 vessel runoff into the bilateral feet. Diminished flow with spectral broadening and monophasic waveforms on MONTSERRAT pressure and Doppler study, specifically within the left great toe are likely artifactual in origin. Reviewed, dictated and finalized at location A. IMPRESSION: No aneurysmal dilatation or dissection is identified within the abdominal aorta , or bilateral lower extremities. No inflow disease is identified. Three-vessel runoff into the bilateral calves with 2 vessel runoff into the doreen ateral feet. Diminished flow with spectral broadening and monophasic waveforms on MONTSERRAT pressu re and Doppler study, specifically within the left great toe are likely artifac tual in origin.
--- OUTSIDE RECORDS SUMMARY | 2025-04-28 15:38 | XMS_ITS | Encounter Summary ---
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
--- OUTSIDE RECORDS SUMMARY | 2025-04-28 15:38 | XMS_ITS | Clinical Summary ---
Author Organization [facility] Address [address] [place] [address] Care Team Providers Care Cull Grader Name Role Phone Tito Thakkar MD Primary Care Provider [phone] Allergies Active Allergy Reactions Criticality Noted Date Comments Morphine GI Upset 05/01/2023 Medications rosuvastatin (CRESTOR) 10 MG tablet 04/29/2023 Active lisinopril (PRINIVIL) 5 MG tablet 04/29/2023 Active levothyroxine (SYNTHROID) 25 MCG tablet daily. 04/29/2023 Active HUMALOG KWIKPEN 100 UNIT/ML injection (PEN) 12-20 Units 3 (three) times daily before meals. 12-20 units based on what she eats 04/29/2023 Active LANTUS SOLOSTAR 100 UNIT/ML injection (PEN) 40 Units nightly at bedtime. 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 Gender Identity Not on file Sexual Orientation Not on file Last Filed Vital Signs Vital Sign Reading Time Taken Comments Blood Pressure 124/60 10/02/2023 9:20 AM LD TEACHER Pulse 80 10/02/2023 9:20 AM LD TEACHER Temperature 36.5 C (97.7 F) 10/02/2023 9:20 AM LD TEACHER Respiratory Rate 16 10/02/2023 9:20 AM LD TEACHER Oxygen Saturation 98% 10/02/2023 9:20 AM LD TEACHER Inhaled Oxygen Concentration - - Weight 86.2 kg (190 lb) 09/26/2023 10:54 AM LD TEACHER Height 165.1 cm (5' 5) 09/26/2023 10:54 AM LD TEACHER Body Mass Index 31.62 09/26/2023 10:54 AM LD TEACHER Plan of Treatment Health Maintenance Due Date Last Done Comments Colorectal Cancer Screening Colonoscopy (10 Years) 1955 Hepatitis C 1971 Mammogram Screening 1993 Zoster Vaccines (2 of 3) 08/02/2015 06/07/2015 Annual Medicare Wellness Visit 2018 Dexa Scan (General) 2018 COVID-19 Vaccine (1 - season) 2024 RSV Immunization or 60+ Years (1 - 1-dose 75+ series) 01/02/2028 DTaP, Tdap and Td Vaccines (3 - Td or Tdap) 03/15/2032 03/15/2022, 08/07/2019 Pneumococcal Vaccine: 50+ Years Completed 03/15/2022, 08/30/2018, 06/07/2015, Additional history exists Meningococcal B Vaccine Aged Out No l onger eligible based on patient's age to complete this topic Meningococcal Vaccine Aged Out No patrick russ eligible based on patient's age to complete this topic RSV Immunizations Under 20 Months Aged Out No longer eligible based on patient's age to complete this topic Medical Devices Implanted Type Area Flat Bed Operator Device Identifier Shelf Expiration Date Model / Serial / Lot Iol [employer]ecnis Simplicity Dcb00 - [id number] Implanted:Qty: 1 on 05/01/2023 by Cydney Burgess MD at [facility] Lens Left: Eye [employer] [id number] 11/02/2025 DCB00 / [id number] / [employer]nis Implanted:Qty: 1 on 10/02/2023 by Cydney Burgess MD at [facility] Right: Eye 03/04/2026 DCB00 / [id number] / Insurance MEDICARE PURITAN LIFE [employer] LIFE [employer] Care Teams Cull Grader Relationship Specialty Start Date End Date Tito Thakkar MD [address] [place] [address] PCP - General INTERNAL MEDICINE 05/01/23
[2025-04-28 15:58] LABS: Estimated Glomerular Filt Rate 53
== END 2025-04-28 15:35 | disposition home or self-care (01) ==
PROVIDERS: PCP Internal Medicine; Visit Provider Internal Medicine
DX: I73.9 Peripheral vascular disease, unspecified (principal)
CPT/HCPCS: 75635; Q9967

== ENCOUNTER 2025-05-05 12:54 | Outpatient (CLI) | payer MEDICARE, SELFPAY ==
--- NOTE | ~2025-05-05 | MM_ITS ---
EXAMINATION: screening [facility] BI w neri INDICATION: Asymptomatic, referred for screening mammogram COMPARISON: 04/02/2024 through 08/24/2015 TECHNIQUE: Digital Breast Tomosynthesis CC, MLO views of Both breasts were obtained with computer-ai ded detection to assist in interpretation of the study. FINDINGS: The breasts are heterogeneously dense, which may obscure small masses. There is a focal asymmetry in the outer central right breast at mid to posterior depth centered at 8 cm posterior to the nipple. Elsewhere, there are no mammographic features of malignancy. IMPRESSION: 1. Right breast Focal asymmetry. 2. No evidence of malignancy in the Left breast. RECOMMENDATION: Right breast Diagnostic mammogram with true lateral, appropriate spot compression views and an ultras ound if needed. BI-RADS Category 0: Incomplete: Needs additional imaging evaluation. Reviewed, dictated and finalized at location B. IMPRESSION: 1. Right breast Focal asymmetry. 2. No evidence of malignancy in the Left breast. RECOMMENDATION: Right breast Diagnostic mammogram with true lateral, appropriate spot compressi on views and an ultrasound if needed. BI-RADS Category 0: Incomplete: Needs additional imaging evaluation.
--- OUTSIDE RECORDS SUMMARY | 2025-05-05 13:01 | XMS_ITS | Encounter Summary ---
Author Organization [facility] Address [address] [place] [address] Care Team Providers Care Diesel Lube Tech Name Role Phone Tito Thakkar MD Primary Care Provider [phone] Encounter Details Date Type Department Care Team (Late st Contact Info) Description 03/21/2019 Abstract SFL CONVERSION [address] [place] [address] , Generic Conversion, Social History Tobacco Use Types Packs/Day Years Used Date Smoking Tobacco: Never Assessed Comments Unknown Sex and Gender Information Value Date Recorded Sex Assigned at Not on file Legal Sex Female 5:53 PM PRODUCT PROMOTER SALES PERSON Gender Identity Not on file Sexual Orientation Not on file documented as of this encounter Plan of Treatment Not on file documented as of this encounter Visit Diagnoses Not on filedocumented in this encounter Care Teams Diesel Lube Tech Relationship Specialty Start Date End Date Tito Thakkar MD [address] [place] [address] PCP - General INTERNAL MEDICINE 05/01/23 documented as of this encounter
--- OUTSIDE RECORDS SUMMARY | 2025-05-05 13:01 | XMS_ITS | Clinical Summary ---
Author Organization [facility] Address [address] [place] [address] Care Team Providers Care Entertainment Usher Name Role Phone Tito Thakkar MD Primary Care Provider [phone] Allergies Active Allergy Reactions Criticality Noted Date [...] file Legal Sex Female 5:53 PM TRUCK SERVICE TECHNICIAN Gender Identity Not on file Sexual Orientation Not on file Last Filed Vital Signs Vital Sign Reading Time Taken Comments Blood Pressure 124/60 10/02/2023 9:20 AM TRUCK SERVICE TECHNICIAN Pulse 80 10/02/2023 9:20 AM TRUCK SERVICE TECHNICIAN Temperature 36.5 C (97.7 F) 10/02/2023 9:20 AM TRUCK SERVICE TECHNICIAN Respiratory Rate 16 10/02/2023 9:20 AM TRUCK SERVICE TECHNICIAN Oxygen Saturation 98% 10/02/2023 9:20 AM TRUCK SERVICE TECHNICIAN Inhaled Oxygen Concentration - - Weight 86.2 kg (190 lb) 09/26/2023 10:54 AM TRUCK SERVICE TECHNICIAN Height 165.1 cm (5' 5) 09/26/2023 10:54 AM TRUCK SERVICE TECHNICIAN Body Mass Index 31.62 09/26/2023 10:54 AM TRUCK SERVICE TECHNICIAN Plan of Treatment Health Maintenance Due Date [...] this topic Medical Devices Implanted Type Area Policy Checker Device Identifier Shelf Expiration Date Model / Serial / Lot Iol Tecnis Simplicity Dcb00 - [id number] Implanted:Qty: 1 on 05/01/2023 by Cydney Burgess MD at [facility] Lens Left: Eye [employer] [id number] 11/02/2025 DCB00 / [id number] / Tecnis Implanted:Qty: 1 on 10/02/2023 by Cydney Burgess MD at [facility] Right: Eye 03/04/2026 DCB00 / [id number] / Insurance MEDICARE [employer] Care Teams Entertainment Usher Relationship Specialty Start Date End Date Tito Thakkar MD [address] [place] [address] PCP - General INTERNAL MEDICINE 05/01/23
== END 2025-05-05 12:55 | disposition home or self-care (01) ==
PROVIDERS: PCP Internal Medicine; Visit Provider Internal Medicine
DX: Z12.31 Encounter for screening mammogram for malignant neoplasm of breast (principal); R92.8 Other abnormal and inconclusive findings on diagnostic imaging of breast
CPT/HCPCS: 77063; 77067

== ENCOUNTER 2025-05-28 09:46 | Outpatient (CLI) | payer MEDICARE, SELFPAY ==
--- NOTE | ~2025-05-28 | MMUS_ITS ---
EXAMINATION: MM diagnostic karon RT w neri, US breast RT complete HISTORY: Comparison to multiple prior studies sequentially, with oldest reviewed study dated 015. TECHNIQUE: Additional 3-D tomosynthesis images of the right breast were performed and synthetic 2-D i mages were generated. CAD analysis was submitted and interpreted. High resolution complete right abad st ultrasound was performed. COMPARISON: Comparison to multiple prior studies sequentially, with oldest reviewed study dated 08/24/2015. BREAST PARENCHYMAL COMPOSITION: Dense: The breasts are heterogeneously dense, which may obscure small masses FINDINGS: MAMMOGRAPHIC FINDINGS: No discrete mass, architectural distortion or suspicious calcifications are identified. Asymmetries c ompress with spot views ULTRASOUND: Complete US of all 4 quadrants of the right breast/s and retroareolar region was reviewed. Normal het erogeneous echotexture without focal solid or cystic mass. IMPRESSION: 1. No evidence for malignancy in the right breast. 2. Routine yearly screening mammogram and regular clinical breast examination are recommended. BI-RADS Category 1: Negative Reviewed, dictated and finalized at location A. IMPRESSION: 1. No evidence for malignancy in the right breast. 2. Routine yearly screening mammogram and regular clinical breast examination a re recommended. BI-RADS Category 1: Negative
== END 2025-05-28 09:47 | disposition home or self-care (01) ==
LOC: CHSIMG 09:51
PROVIDERS: PCP Internal Medicine; Visit Provider Internal Medicine
DX: R92.8 Other abnormal and inconclusive findings on diagnostic imaging of breast (principal)
CPT/HCPCS: 76641; 77061; 77065; G0279

== ENCOUNTER 2025-08-03 07:58 | Outpatient (CLI) | payer MEDICARE, SELFPAY ==
--- OUTSIDE RECORDS SUMMARY | 2025-08-03 08:07 | XMS_ITS | Encounter Summary ---
Author Organization [facility] Address [address] [place] [address] Care Team Providers Care Station Worker Name Role Phone Tito Thakkar MD Primary Care Provider [phone] Encounter Details Date Type Department Care Team (Late st Contact Info) Description 03/21/2019 Abstract SFL CONVERSION [address] [place] [address] , Generic Conversion, Social History Tobacco Use Types Packs/Day Years Used Date Smoking Tobacco: Never Assessed Comments Unknown Sex and Gender Information Value Date Recorded Sex Assigned at Not on file Legal Sex Female 5:53 PM LOG GRADER Gender Identity Not on file Sexual Orientation Not on file documented as of this encounter Plan of Treatment Not on file documented as of this encounter Visit Diagnoses Not on filedocumented in this encounter Care Teams Station Worker Relationship Specialty Start Date End Date Tito Thakkar MD [address] [place] [address] PCP - General INTERNAL MEDICINE 05/01/23 documented as of this encounter
--- OUTSIDE RECORDS SUMMARY | 2025-08-03 08:07 | XMS_ITS | Clinical Summary ---
Author Organization [facility] Address [address] [place] [address] Care Team Providers Care Contact Lens Fitter Name Role Phone Tito Thakkar MD Primary Care Provider [phone] Allergies Active Allergy Reactions Criticality Noted Date [...] on file Legal Sex Female 5:53 PM PROFESSOR OF ENGLISH Gender Identity Not on file Sexual Orientation Not on file Last Filed Vital Signs Vital Sign Reading Time Taken Comments Blood Pressure 124/60 10/02/2023 9:20 AM PROFESSOR OF ENGLISH Pulse 80 10/02/2023 9:20 AM PROFESSOR OF ENGLISH Temperature 36.5 C (97.7 F) 10/02/2023 9:20 AM PROFESSOR OF ENGLISH Respiratory Rate 16 10/02/2023 9:20 AM PROFESSOR OF ENGLISH Oxygen Saturation 98% 10/02/2023 9:20 AM PROFESSOR OF ENGLISH Inhaled Oxygen Concentration - - Weight 86.2 kg (190 lb) 09/26/2023 10:54 AM PROFESSOR OF ENGLISH Height 165.1 cm (5' 5) 09/26/2023 10:54 AM PROFESSOR OF ENGLISH Body Mass Index 31.62 09/26/2023 10:54 AM PROFESSOR OF ENGLISH Plan of Treatment Health Maintenance Due Date Last Done Comments Colorectal Cancer Screening Colonoscopy (10 Years) 1953 Hepatitis C 1971 Mammogram Screening 1993 Zoster Vaccines (2 of 3) 08/02/2015 06/07/2015 Annual Medicare Wellness Visit 2018 Dexa Scan (General) 2018 COVID-19 Vaccine ( - season) 2025 Influenza Adult (#1) 2025 08/03/2022, 07/28/2021, 06/22/2020, Additional history exists RSV Immunization or 60+ Years (1 - 1-dose 75+ series) 01/02/2028 DTaP, Tdap and Td Vaccines (3 - Td or Tdap) 03/15/2032 03/15/2022, 08/07/2019 Pneumococcal Vaccine: 50+ Years Completed 03/15/2022, 08/30/2018, 06/07/2015, Additional history exists Hepatitis A Vaccines Aged Out No long er eligible based on patient's age to complete this topic Meningococcal B Vaccine Aged Out No l onger eligible based on patient's age to complete this topic Meningococcal Vaccine Aged Out No patrick russ eligible based on patient's age to complete this topic RSV Immunizations Under 20 Months Aged Out No longer eligible based on patient's age to complete this topic Medical Devices Implanted Type Area Flying Squad Worker Device Identifier Shelf Expiration Date Model / Serial / Lot Iol Tecnis Simplicity Dcb00 - [id number] Implanted:Qty: 1 on 05/01/2023 by Cydney Burgess MD at [facility] Lens Left: Eye [employer] [id number] 11/02/2025 DCB00 / [id number] / Tecnis Implanted:Qty: 1 on 10/02/2023 by Cydney Bugress MD at [facility] Right: Eye 03/04/2026 DCB00 / [id number] / Insurance MEDICARE [facility] LIFE LIFE LIFE Care Teams Contact Lens Fitter Relationship Specialty Start Date End Date Tito Thakkar MD [address] [place] [id number] PCP - General INTERNAL MEDICINE 05/01/23
[2025-08-03 09:04] LABS: Anion Gap 8 mmol/L (4-12); Blood Urea Nitrogen 11 mg/dL (7-17); Calcium 10.0 mg/dL (8.4-10.2); Carbon Dioxide 32 mmol/L (22-30); Chloride 103 mmol/L (98-107); Estimated Glomerular Filt Rate 56; Glucose 202 mg/dL (65-110); Osmolality Calculated 301 mOsm/kg (285-295); Potassium 4.3 mmol/L (3.4-5.0); Sodium 143 mmol/L (137-145)
[2025-08-03 09:14] LABS: Hemoglobin A1C 7.1 % (<5.7)
[2025-08-03 09:19] LABS: Free T3 3.58 pg/mL (2.18-3.98)
[2025-08-03 09:21] LABS: Free T4 Free Thyroxine 1.06 ng/dL (0.78-2.19)
[2025-08-03 09:34] LABS: Thyroid Stimulating Hormone 4.400 uIU/mL (0.465-4.680)
== END 2025-08-03 07:59 | disposition home or self-care (01) ==
LOC: CHSLAB 08:00
PROVIDERS: PCP Internal Medicine; Visit Provider Internal Medicine
DX: G62.9 Polyneuropathy, unspecified (principal); E03.4 Atrophy of thyroid (acquired); E11.42 Type 2 diabetes mellitus with diabetic polyneuropathy
CPT/HCPCS: 36415; 80048; 83036; 84439; 84443; 84481

== ENCOUNTER 2025-08-04 16:20 | Outpatient (CLI) | payer MEDICARE, SELFPAY ==
--- NOTE | ~2025-08-04 | XR_ITS ---
XR lumbar spine 2-3V Indication: LOW BACK PAIN AFTER FALL A MONTH AGO Comparison: None Findings: Grade 1 anterolisthesis of L5 on S1 with bilateral spondylolytic defects. Moderate to severe loss of disc height throughout most marked at L5-S1. Soft tissues unremarkable Impression: No acute abnormality. Reviewed, dictated and finalized at location P. Impression: No acute abnormality.
--- OUTSIDE RECORDS SUMMARY | 2025-08-04 20:16 | XMS_ITS | Encounter Summary ---
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
--- OUTSIDE RECORDS SUMMARY | 2025-08-04 20:16 | XMS_ITS | Clinical Summary ---
Author Organization [facility] Address [address] [place] [address] Care Team Providers Care Experimental Plastics Fabricator Name Role Phone Tito Thakkar MD Primary Care Provider [phone] Allergies Active Allergy Reactions Criticality Noted Date [...] on file Legal Sex Female 5:53 PM CONVERTING OPERATOR Gender Identity Not on file Sexual Orientation Not on file Last Filed Vital Signs Vital Sign Reading Time Taken Comments Blood Pressure 124/60 10/02/2023 9:20 AM CONVERTING OPERATOR Pulse 80 10/02/2023 9:20 AM CONVERTING OPERATOR Temperature 36.5 C (97.7 F) 10/02/2023 9:20 AM CONVERTING OPERATOR Respiratory Rate 16 10/02/2023 9:20 AM CONVERTING OPERATOR Oxygen Saturation 98% 10/02/2023 9:20 AM CONVERTING OPERATOR Inhaled Oxygen Concentration - - Weight 86.2 kg (190 lb) 09/26/2023 10:54 AM CONVERTING OPERATOR Height 165.1 cm (5' 5) 09/26/2023 10:54 AM CONVERTING OPERATOR Body Mass Index 31.62 09/26/2023 10:54 AM CONVERTING OPERATOR Plan of Treatment Health Maintenance Due Date [...] this topic Medical Devices Implanted Type Area Procurement Professional Device Identifier Shelf Expiration Date Model / Serial / Lot Iol Tecnis Simplicity Dcb00 - [id number] Implanted:Qty: 1 on 05/01/2023 by Cydney Burgess MD at [facility] Lens Left: Eye [employer] [id number] 11/02/2025 DCB00 / [id number] / Tecnis Implanted:Qty: 1 on 10/02/2023 by Cydney Burgess MD at [facility] Right: Eye 03/04/2026 DCB00 / [id number] / Insurance MEDICARE [facility] LIFE LIFE LIFE Care Teams Experimental Plastics Fabricator Relationship Specialty Start Date End Date Tito Thakkar MD [address] [place] [phone] PCP - General INTERNAL MEDICINE 05/01/23
== END 2025-08-04 16:21 | disposition home or self-care (01) ==
LOC: CHSIMG 16:30
PROVIDERS: PCP Internal Medicine; Visit Provider Internal Medicine
DX: M54.50 Low back pain, unspecified (principal)
CPT/HCPCS: 72100

== ENCOUNTER 2025-08-18 15:03 | Outpatient (RCR) | payer MEDICARE, SELFPAY ==
--- NOTE | 2025-08-18 16:17 | OPREHPOC ---
Outpatient Therapy Plan of Care This is a Multidisciplinary Plan of Care that may contain components documented by all disciplines (PT, OT, and ST.) PT Problem 1 PT Problem #1 Knowledge Deficit PT Goal 1 Goal / Goal Update independent and compliant with HEP Target Visit 6 PT Problem 2 PT Problem #2 Pain PT Goal 1 Goal / Goal Update decrease pain at worst to 3/10 or less in the lower back. Target Visit 12 PT Problem 3 PT Problem #3 Impaired Strength PT Goal 1 Goal / Goal Update 4+/5 or better overall bilateral hip strength 44/5 or better core strength Target Visit 12 PT Problem 4 PT Problem #4 Impaired Functional Mobility PT Goal 1 Goal / Goal Update patient to display 20% or less functional deficits per the oswestry patient to ambulate with safe mechanics patient to squat and lift 20lbs from floor to waist safely with confidence patient to carry 20lbs around 400ft with safety and no pain.
--- NOTE | 2025-08-18 16:17 | PTOPEVAL1 ---
Assessment and note entered by JT File, PT Evaluation Information Assessment Status Evaluation ICD-10 Condition Codes (PT) Pain in low back M54.50 Onset 06/18/25 Subjective Information patient reports she injured her back a couple months ago pulling hard to get something off the hitch of her vehicle. she reports she has never had back issues. she reports she did have an xray of the lower back. she reports the pain is aggravating. she reports she has pain every day. she reports it is increased with home chores and lifting more than 10 lbs. Reported Pain Level Pain Score 4: Self Report Assessment PT Clinical Summary mrs. nogueira is a 70 yo woman who presents to skilled PT with pain in the R lower back. she displays signs and symptoms consistent with lumbar DDD and R lumbar paraspinal mm strain. she displays decreased lumbar rom, tenderness to pain, weakness, and decreased functional activity performance. continued skilled PT is indicated to improve her objective/functional deficits and progress towards a return to her prior level functional activity performance/quality of life. Plan of Care Interventions Electrical Stimulation,Gait Training,Hot Pack/Cold Pack,Manual Therapy,Neuro Re-education,Patient/ Caregiver Education,Therapeutic Activities, Therapeutic Exercise PT Services Indicated Yes Treatment Frequency and 3x weekly for 12 visits Duration These treatments will address the objective and functional deficits as defined above. The patient will be advanced safely and appropriately in order for the patient to progress towards his/her prior level of function. Additional exercises will be introduced and as well as a comprehensive home exercise program upon discharge, if needed, ?to ensure carryover of functional gains achieved in the clinic. This treatment plan has been reviewed and agreement upon by the patient.
--- NOTE | 2025-09-06 10:28 | PCPTNOTE ---
Cancelled session. Reports she is having bathroom issues.
--- NOTE | 2025-09-17 15:55 | OPREHPOC ---
Outpatient Therapy Plan of Care This is a Multidisciplinary Plan of Care that may contain components documented by all disciplines (PT, OT, and ST.) PT Problem 1 PT Problem #1 Knowledge Deficit PT Goal 1 Goal / Goal Update independent and compliant with HEP Target Visit 6 Progress Met PT Problem 2 PT Problem #2 Pain PT Goal 1 Goal / Goal Update decrease pain at worst to 3/10 or less in the lower back. Target Visit 12 Progress Partially Met PT Problem 3 PT Problem #3 Impaired Strength PT Goal 1 Goal / Goal Update 4+/5 or better overall bilateral hip strength 4/5 or better core strength Target Visit 12 Progress Partially Met PT Problem 4 PT Problem #4 Impaired Functional Mobility PT Goal 1 Goal / Goal Update patient to display 20% or less functional deficits per the oswestry. met patient to ambulate with safe mechanics patient to squat and lift 20lbs from floor to waist safely with confidence patient to carry 20lbs around 400ft with safety and no pain. Progress Partially Met
--- NOTE | 2025-09-17 15:55 | PTOPPROGNS ---
Assessment and note entered by JT File, PT Evaluation Information Assessment Status Progress ICD-10 Condition Codes (PT) Pain in low back M54.50 Onset 06/18/25 Subjective Information patient reports she is better, but increased standing and weight bearing activities still increase her pain and symptoms. she reports she is consistent with her HEP at home. she reports recently she has been having inability to lay flat and turning to her R side due to dizziness. she reports a history of BPPV to the R side. Assessment PT Clinical Summary mrs. nogueira presents to skilled PT today for her 10th skilled PT visit. she displays continued pain in the lower back, but less since her initial evaluation and overall functional improvement. she displays positive R romain hallpike today after reports of inability to lay supine and dizziness turning to the R side. continued skilled PT is indicated to improve her remaining objective/ functional deficits and achieve all goals and improved functional activity performance. Plan of Care Interventions Electrical Stimulation,Gait Training,Hot Pack/Cold Pack,Manual Therapy,Neuro Re-education,Patient/ Caregiver Education,Therapeutic Activities, Therapeutic Exercise PT Services Indicated Yes Treatment Frequency and continue skilled PT per initial POC Duration These treatments will address the objective and functional deficits as defined above. The patient will be advanced safely and appropriately in order for the patient to progress towards his/her prior level of function. Additional exercises will be introduced and as well as a comprehensive home exercise program upon discharge, if needed, ?to ensure carryover of functional gains achieved in the clinic. This treatment plan has been reviewed and agreement upon by the patient.
--- NOTE | 2025-09-22 16:00 | OPREHPOC ---
Outpatient Therapy Plan of Care This is a Multidisciplinary Plan of Care that may contain components documented by all disciplines (PT, OT, and ST.) PT Problem 1 PT Problem #1 Knowledge Deficit PT Goal 1 Goal / Goal Update independent and compliant with HEP Target Visit 6 Progress Met PT Problem 2 PT Problem #2 Pain PT Goal 1 Goal / Goal Update decrease pain at worst to 3/10 or less in the lower back. Target Visit 12 Progress Met PT Problem 3 PT Problem #3 Impaired Strength PT Goal 1 Goal / Goal Update 4+/5 or better overall bilateral hip strength 4/5 or better core strength Target Visit 12 Progress Met PT Problem 4 PT Problem #4 Impaired Functional Mobility PT Goal 1 Goal / Goal Update patient to display 20% or less functional deficits per the oswestry. met patient to ambulate with safe mechanics. met patient to squat and lift 20lbs from floor to waist safely with confidence. met patient to carry 20lbs around 400ft with safety and no pain. met Progress Met
--- NOTE | 2025-09-22 16:00 | PTOPDC ---
Assessment and note entered by J[employer] File, PT Evaluation Information Assessment Status Discharge ICD-10 Condition Codes (PT) Pain in low back M54.50 Onset 06/18/25 Subjective Information patient reports she feels much better overall. she reports her pain is much lower, and she notices that she is stronger and able to do more in the home and community. she reports she is consistent with her HEP at home. patient reports recent shirin maneuvers have helped to reduce her R vertigo symptoms. Reported Pain Level Pain Score 1: Self Report Assessment PT Clinical Summary mrs. nogueira presents to skilled PT services for her 12th skilled PT for her lower back. she displays improvements across all objective measurements. she has met all goals for skilled PT as of this date. she will DC skilled PT today, and continue with HEP independent at home. Plan of Care PT Services Indicated Yes
== END 2025-09-22 20:00 | disposition home or self-care (01) ==
LOC: CHSPT 15:03
PROVIDERS: PCP Internal Medicine; Visit Provider Internal Medicine
DX: M54.50 Low back pain, unspecified (principal)
CPT/HCPCS: 97014; 97110; 97112; 97140; 97161; G0283